=== PATIENT | male | born 1980 | race Caucasian/White ===

== ENCOUNTER 2016-10-10 15:47 | Outpatient (RCR) | payer MEDICAID ==
--- OUTSIDE RECORDS SUMMARY | 2016-09-25 10:45 | XMS REPORT ---
Author GABRIEL Mason [facility] eClinicalWorks Address Unknown Phone Unavailable Care Team Providers Care Central Supply Technician Supervisor Name Role Phone GABRIEL VIVAS CP Unavailable Allergies, Adverse Reactions, Alerts Substance Reaction Event Type Erythrocin Info Not Available Drug Allergy Vioxx Chest pain Drug Allergy Sulfa(sulfonamide Antibiotics) Excessive bleeding Non Drug Allergy Penicillins Info Not Available Non Drug Allergy Problems Problem Type Condition Code Onset Dates Condition Status Problem Bipolar I disorder, most recent episode (or current) mixed, moderate 296.62 Active Problem Major depressive disorder, single episode, severe, without mention of psychotic behavior 296.23 Active Problem Unspecified episodic mood disorder 296.90 Active Problem Depressive disorder, not elsewhere classified 311 Active Assessment Dental examination Z01.20 Active Medications Medication Code System Code Instructions Start Date End Date Status Dosage Christoval [facility] [address]-30 5-325 MG Orally every 6 hrs Jul 20, 2016 Jul 24, 2016 1 tablet as needed Clindamycin HCl [facility] [address]-47 150 MG Orally 3 times a day Jul 20, 2016 Jul 27, 2016 1 capsule Seroquel [facility] [address]-82 not defined Procedures Procedure Coding System Code Date INTRAORL-PERIAPICAL 1 FILM 67462 CPT-4 D0220 Jul 20, 2016 LTD ORAL EVALUATION - PROBLEM FOCUS CPT-4 D0140 Jul 20, 2016 Vital Signs Date/Time: Jul 20, 2016 Blood Pressure Diastolic 82 mmHg Blood Pressure Systolic 129 mmHg Height 72 in Results No Known Results Summary Purpose eClinicalWorks Submission
[~2016-10-10 15:47] MED LIST: ACHD5005 PO; BUSP10TA95 PC; CEPH-507 PO; CEPH500C PO; CETI10CA PO; CYCL10TA9 PO; HYDR-3812 PO; METH4TAB10 PO; OSLT75C PO; PRD20T PO; QUET50TA55 PO; SERT50TA9 PO; TRAM50TA2 PO
== END 2016-10-18 14:47 | disposition home or self-care (01) ==
PROVIDERS: ATTEND Nurse Practitioner Family
DX: M25.511 Pain in right shoulder (principal)

== ENCOUNTER 2018-05-12 20:40 | Emergency (ER) | payer MEDICAID ==
[~2018-05-12] VITALS: Ht 185.4 cm; Wt 79.4 kg
[~2018-05-12 20:40] MED LIST changes: -HYDR-3812 PO
--- OUTSIDE RECORDS SUMMARY | 2018-05-12 20:45 | XMS REPORT ---
Author GABRIEL Mason [facility] eClinicalWorks Address Unknown Phone Unavailable Care Team Providers Care Stunt Person Name Role Phone GABRIEL VIVAS CP Unavailable [...] Instructions Start Date End Date Status Dosage [place] [facility] [address]-77 5-325 MG Orally every 6 hrs Jul 20, 2016 Jul 24, 2016 1 tablet as needed Clindamycin HCl [facility] [address]-26 150 MG Orally 3 times a day Jul 20, 2016 Jul 27, 2016 1 capsule Seroquel [facility] [address]-50 not defined Procedures Procedure Coding System Code Date INTRAORL-PERIAPICAL 1 FILM 54591 CPT-4 D0220 Jul 20, 2016 LTD ORAL EVALUATION - PROBLEM FOCUS CPT-4 D0140 Jul 20, 2016 Vital Signs Date/Time: Jul 20, 2016 Blood Pressure Diastolic 82 mmHg Blood Pressure Systolic 129 mmHg Height 72 in Results No Known Results Summary Purpose eClinicalWorks Submission
--- OUTSIDE RECORDS SUMMARY | 2018-05-12 20:45 | XMS REPORT ---
Author Author TIMO SHANE [facility] Address Unknown Care Team Providers Care Top Lift Scourer Name Role Phone TIMO SHANE Unavailable PROBLEMS Type Condition ICD9-CM Code HTV26-LX Code Onset Dates Condition Status SNOMED Code Problem Major depressive disorder, single episode, severe, without mention of psychotic behavior 296.23 Active 14400688 Problem Bipolar I disorder, most recent episode (or current) mixed, moderate 296.62 Active 971299809 Problem Unspecified episodic mood disorder 296.90 Active 486103631 Problem Depressive disorder, not elsewhere classified 311 Active [id number] ALLERGIES Substance Reaction Event Type Date Status Erythrocin Unknown Drug Allergy Jul, Active Vioxx Chest pain Drug Allergy Jul, Active Penicillins Unknown Non Drug Allergy Jul, Active Sulfa(sulfonamide Antibiotics) Excessive bleeding Non Drug Allergy Jul, Active ENCOUNTERS Encounter Location Date Diagnosis [facility] [id number] [place] [address] [id number] Jul, Dental caries K02.9 [facility] [id number] [place] [address] [id number] Jul, Dental examination Z01.20 [facility] [id number] [place] [address] [id number] Jul, Dental caries K02.9 [facility] [id number] [place] [address] [id number] Jul, Dental examination Z01.20 [facility] [id number] [place] [phone] Jan, [facility] [id number] [place] [address] [phone] Jan, [facility] [id number] [place] [address] [phone] May, [facility] [id number] [address] Apr, [facility] [address] [address] Apr, [facility] [address] [address] Apr, [facility] [address] [address] Mar, [facility] [address] [address] Mar, [facility] [id number] [place] [phone] Mar, [facility] [address] [address] Mar, [facility] [address] [address] February, [facility] [id number] [address] February, IMMUNIZATIONS No Known Immunizations SOCIAL HISTORY Never Assessed REASON FOR VISIT TE PLAN OF CARE Activity Details Follow Up prn Reason:gino and hygiene VITAL SIGNS Height 72 in 2017-08-10 Blood pressure systolic 134 mmHg 2017-08-10 Blood pressure diastolic 90 mmHg 2017-08-10 MEDICATIONS No Known Medications RESULTS No Results PROCEDURES Procedure Date Ordered Result Body Site EXTRAC ERUPTED TOOTH/EXPOSED ROOT Aug 10, 2017 INSTRUCTIONS MEDICATIONS ADMINISTERED No Known Medications
--- OUTSIDE RECORDS SUMMARY | 2018-05-12 20:45 | XMS REPORT ---
Author Author TIMO SHANE eClinicalWorks Address Unknown Phone Unavailable Care Team Providers Care Buck Swamper Name Role Phone TIMO SHANE CP Unavailable Allergies, Adverse Reactions, Alerts Substance Reaction Event Type Erythrocin Info Not Available Drug Allergy Vioxx Chest pain Drug Allergy Penicillins Info Not Available Non Drug Allergy Sulfa(sulfonamide Antibiotics) Excessive bleeding Non Drug Allergy Problems Problem Type Condition Code Onset Dates Condition Status Problem Bipolar I disorder, most recent episode (or current) mixed, moderate 296.62 Active Problem Major depressive disorder, single episode, severe, without mention of psychotic behavior 296.23 Active Problem Unspecified episodic mood disorder 296.90 Active Problem Depressive disorder, not elsewhere classified 311 Active Assessment Dental caries K02.9 Active Medications Medication Code System Code Instructions Start Date End Date Status Dosage [place] [facility] [address]-58 5-325 MG Orally every 6 hrs Aug 01, 2016 1 tablet as needed Seroquel [facility] [address]-53 not defined Procedures Procedure Coding System Code Date SURG REMOVAL ERUPTED TOOTH CPT-4 D7210 Aug 01, 2016 EXTRAC ERUPTED TOOTH/EXPOSED ROOT CPT-4 D7140 Aug 01, 2016 Vital Signs Date/Time: Aug 01, 2016 Blood Pressure Diastolic 72 mmHg Blood Pressure Systolic 113 mmHg Results No Known Results Summary Purpose eClinicalWorks Submission
--- NOTE | 2018-05-12 21:14 | ED Upper Extremity ---
General Chief Complaint: Upper Extremity Stated Complaint: L SHOULDER PAIN Source: patient Exam Limitations: no limitations History of Present Illness Date Seen by Provider: May 12, 2018 Time Seen by Provider: 21:11 Initial Comments to ER with reports of left shoulder pain. This is been ongoing for a few weeks. By year ago he had surgery on the right shoulder for "bone spurs". Dr. Odonnlel did that surgery. He states this pain that he's having in the posterior left shoulder is similar to what he had a year ago. He does not recall any injury. Onset: just prior to arrival Severity: moderate Pain/Injury Location: left shoulder Method of Injury: unknown Modifying Factors: Worse With Movement Allergies and Home Medications Allergies Coded Allergies: Rofecoxib (Unverified Allergy, CHEST PAIN, 12/10/10) Uncoded Allergies: ERYTHROMYCIN (Allergy, Severe, ALSO MAKES HIM "DROP ", 12/10/10) PENICILLIN (Allergy, Severe, "DROP ", 12/10/10) SULFA DRUGS (Allergy, SHAKE AND BLEED PROFUSELY OUT BOTH NOSTRILS, 12/10/10) Home Medications Buspirone HCl 10 Mg Tablet, 1 TAB PC BID, (Reported) Cephalexin 500 Mg Capsule, 500 MG PO TID Prescribed by: ÓSCAR PATEL on 09/20/15128 Cyclobenzaprine HCl 10 Mg Tablet, 10 MG PO Q8H PRN for SPASMS Prescribed by: ÓSCAR PATEL on 10/04/161618 Hydrocodone Bit/Acetaminophen 1 Each Tablet, 1 EACH PO Q4H PRN for PAIN Prescribed by: ÓSCAR PATEL on 10/04/161618 Methylprednisolone 4 Mg Tab.ds.pk, 4 MG PO UD Prescribed by: ÓSCAR PATEL on 10/04/161618 Quetiapine Fumarate 50 Mg Tablet, 1.5 TAB PO DAILY, (Reported) Sertraline HCl 50 Mg Tablet, 1 TAB PO DAILY, (Reported) Tramadol HCl 50 Mg Tablet, 50 MG PO Q4H PRN for PAIN Prescribed by: ÓSCAR PATEL on 09/20/15128 Patient Home Medication List Home Medication List Reviewed: Yes Constitutional: see HPI EENTM: see HPI Respiratory: no symptoms reported Cardiovascular: no symptoms reported Genitourinary: no symptoms reported Musculoskeletal: see HPI, joint pain Skin: no symptoms reported Psychiatric/Neurological: No Symptoms Reported Past Gecjgec-Aefoxi-Zdxnqh Hx Patient Social History Alcohol Use: Denies Use Recreational Drug Use: No Smoking Status: Current Everyday Smoker Type Used: Cigarettes Recent Foreign Travel: No Contact w/Someone Who Travel: No Recent Hopitalizations: No Immunizations Up To Date Tetanus Booster (TDap): Unknown Seasonal Allergies Seasonal Allergies: No Past Medical History Surgeries: Yes (LEFT KNEE, WISDOM TEETH, tendon on r hand) Respiratory: No Cardiac: No Neurological: No Gastrointestinal: No Musculoskeletal: Yes (chronic shoulder pain) Endocrine: No Cancer: No Psychosocial: Yes Anxiety Integumentary: No Blood Disorders: No Adverse Reaction/Blood Tranf: No Family Medical History No Pertinent Family Hx Physical Exam Vital Signs Vital Signs - First Documented 05/12/18 20:58 Temp 98.0 Pulse 66 Resp 20 B/P (MAP) 132/76 (94) Pulse Ox 98 O2 Delivery Room Air Capillary Refill : Height, Weight, BMI Height: 6'0" Weight: 200lbs. oz. 90.727946ts; BMI Method:Stated General Appearance: WD/WN, no apparent distress HEENT: PERRL/EOMI, normal ENT inspection Neck: non-tender, full range of motion Respiratory: no respiratory distress, no accessory muscle use Shoulder: normal inspection, non-tender; No ecchymosis; limited ROM, pain; No soft tissue tenderness, No swelling Elbow/Forearm: normal inspection, non-tender Wrist: Yes normal inspection, Yes non-tender Hand: normal inspection, non-tender, Left Neurologic/Psychiatric: alert, normal mood/affect, oriented x 3 Progress/Results/Core Measures Results/Orders My Orders Orders - OLGA RATLIFF APRN Shoulder, Left, 3 Views (05/12/18 21:05) Ketorolac Injection (Toradol Injection) (05/12/18 21:15) Medications Given in ED Current Medications Medications Dose Ordered Sig/Tabitha Route Start Time Stop Time Status Last Admin Dose Admin Ketorolac Tromethamine 60 mg ONCE ONCE IM 05/12/18 21:15 05/12/18 21:16 DC 05/12/18 21:23 60 MG Vital Signs/I&O 05/12/18 20:58 Temp 98.0 Pulse 66 Resp 20 B/P (MAP) 132/76 (94) Pulse Ox 98 O2 Delivery Room Air Departure Impression Primary Impression: Left shoulder pain Disposition: 01 HOME, SELF-CARE Condition: Stable Departure-Patient Inst. Decision time for Depature: 21:13 Referrals: ANNEL ODONNELL MD, LISA A MD (PCP/Family) Primary Care Physician Patient Instructions: Shoulder Pain (DC) Add. Discharge Instructions: 1. Give Dr. Odonnell a call tomorrow to make an appointment to be seen whenever he can see you for further evaluation of this pain.All discharge instructions reviewed with patient and/or family. Voiced understanding. Copy Copies To 1: ANNEL ODONNELL MD, PETER J APRN May 12, 2018 21:14
[2018-05-12] MEDS ORDERED: KETOROLAC 60 MG/2 ML VIAL IM ONE (21:15)
--- NOTE | 2018-05-12 21:20 | Diagnostic Imaging Report ---
INDICATION: Left shoulder pain COMPARISON: None FINDINGS: 3 views of the left shoulder demonstrate no fracture or dislocation. Articular surfaces are normal. There are no osseous lesions. IMPRESSION: Negative left shoulder Dictated by: Dictated on workstation # [id number]
[2018-05-12 21:32] VITALS: BP 132/76
== END 2018-05-12 21:31 | disposition home or self-care (01) ==
LOC: EDUNIT# 20:40 → ER 20:41
DX: M25.512 Pain in left shoulder (principal); F41.9 Anxiety disorder, unspecified; F17.210 Nicotine dependence, cigarettes, uncomplicated; Z88.0 Allergy status to penicillin; Z88.2 Allergy status to sulfonamides; Z88.8 Allergy status to other drugs, medicaments and biological substances; Z98.890 Other specified postprocedural states; Z79.52 Long term (current) use of systemic steroids
CPT/HCPCS: 73030; 96372

== ENCOUNTER 2018-07-15 18:38 | Emergency (ER) | payer MEDICAID ==
[~2018-07-15] VITALS: Ht 185.4 cm; Wt 81.6 kg
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
[2018-07-15] MEDS ORDERED: KETOROLAC 60 MG/2 ML VIAL IM ONE (20:00)
[2018-07-15] MEDS ORDERED: PROCHLORPERAZINE 10 MG/2ML INJ (COMPAZINE) IM ONE (20:00)
[2018-07-15] MEDS ORDERED: diphenhydrAMINE 50 MG/ML INJ (BENADRYL) IM ONE (20:00)
--- NOTE | 2018-07-15 20:01 | ED Headache ---
General Stated Complaint: MIGRAINE Source: patient, family Exam Limitations: no limitations History of Present Illness Date Seen by Provider: Jul 15, 2018 Time Seen by Provider: 20:00 Initial Comments To ER with reports of right-sided headache. He had this yesterday but seemed to improve and then recur this afternoon about 2 PM. He took 3 ibuprofen and 2 Tylenol without relief. He's had nausea as well. No fevers or chills. He hasn't had a migraine for very long time but he does have a history. Timing/Duration: waxing and waning Severity/Quality: moderate Location: parietal Prior Headaches/Recent Trauma: occasional headaches Modifying Factors: worse with exposure to light Associated Symptoms: nausea/vomiting; No stiff neck Allergies and Home Medications Allergies Coded Allergies: Rofecoxib (Unverified Allergy, CHEST PAIN, 12/10/10) Uncoded Allergies: ERYTHROMYCIN (Allergy, Severe, ALSO MAKES HIM "DROP ", 12/10/10) PENICILLIN (Allergy, Severe, "DROP ", 12/10/10) SULFA DRUGS (Allergy, SHAKE AND BLEED PROFUSELY OUT BOTH NOSTRILS, 12/10/10) Home Medications Buspirone HCl 10 Mg Tablet, 1 TAB PC BID, (Reported) Cephalexin 500 Mg Capsule, 500 MG PO TID Prescribed by: ÓSCAR PATEL on 09/20/15128 Cyclobenzaprine HCl 10 Mg Tablet, 10 MG PO Q8H PRN for SPASMS Prescribed by: ÓSCAR PATEL on 10/04/161618 Hydrocodone Bit/Acetaminophen 1 Each Tablet, 1 EACH PO Q4H PRN for PAIN Prescribed by: ÓSCAR PATEL on 10/04/161618 Methylprednisolone 4 Mg Tab.ds.pk, 4 MG PO UD Prescribed by: ÓSCAR PATEL on 10/04/161618 Quetiapine Fumarate 50 Mg Tablet, 1.5 TAB PO DAILY, (Reported) Sertraline HCl 50 Mg Tablet, 1 TAB PO DAILY, (Reported) Tramadol HCl 50 Mg Tablet, 50 MG PO Q4H PRN for PAIN Prescribed by: ÓSCAR PATEL on 09/20/15128 Patient Home Medication List Home Medication List Reviewed: Yes Review of Systems Review of Systems Constitutional: see HPI; No chills, No fever Eyes: See HPI, Photophobia Ears, Nose, Mouth, Throat: no symptoms reported Respiratory: no symptoms reported Cardiovascular: no symptoms reported Genitourinary: no symptoms reported Musculoskeletal: no symptoms reported Skin: no symptoms reported Psychiatric/Neurological: No Symptoms Reported Past Yevsqqe-Uercjv-Yodigu Hx Patient Social History Type Used: Cigarettes Recent Foreign Travel: No Contact w/Someone Who Travel: No Recent Hopitalizations: No Immunizations Up To Date Tetanus Booster (TDap): Unknown Seasonal Allergies Seasonal Allergies: No Past Medical History Surgeries: Yes (LEFT KNEE, WISDOM TEETH, tendon on r hand) Respiratory: No Cardiac: No Neurological: No Gastrointestinal: No Musculoskeletal: Yes (chronic shoulder pain) Endocrine: No Cancer: No Psychosocial: Yes Anxiety Integumentary: No Blood Disorders: No Adverse Reaction/Blood Tranf: No Family Medical History No Pertinent Family Hx Physical Exam Vital Signs Capillary Refill : Height, Weight, BMI Height: 6'1.00" Weight: 175lbs. oz. 79.571226ap; BMI Method:Stated General Appearance: WD/WN, no apparent distress HEENT: PERRL/EOMI, normal ENT inspection, TMs normal Neck: non-tender, full range of motion Respiratory: no respiratory distress, no accessory muscle use Extremities: normal range of motion, non-tender Psychiatric: alert, oriented x 3 Crainal Nerves: normal hearing, normal speech, PERRL Skin: normal color, warm/dry Progress/Results/Core Measures Results/Orders My Orders Orders - OLGA RATLIFF APRN Ketorolac Injection (Toradol Injection) (07/15/18 20:00) Prochlorperazine Injection (Compazine In (07/15/18 20:00) Diphenhydramine Injection (Benadryl Inje (07/15/18 20:00) Departure Impression Primary Impression: Headache Disposition: 01 HOME, SELF-CARE Condition: Stable Departure-Patient Inst. Decision time for Depature: 20:04 Referrals: CHRISTOPHER HERRING MD (PCP/Family) Primary Care Physician Patient Instructions: Headache, Adult (DC) Add. Discharge Instructions: 1. Return to ER for any concerns 2. Follow-up with doctor next week OLGA RATLIFF APRN Jul 15, 2018 20:01
[2018-07-15 20:28] VITALS: BP 116/70
== END 2018-07-15 20:31 | disposition home or self-care (01) ==
LOC: EDUNIT# 18:38 → ER 18:39
DX: R51 Headache (principal); F41.9 Anxiety disorder, unspecified; Z88.8 Allergy status to other drugs, medicaments and biological substances; Z88.0 Allergy status to penicillin; Z88.2 Allergy status to sulfonamides; Z88.1 Allergy status to other antibiotic agents; Z79.52 Long term (current) use of systemic steroids
CPT/HCPCS: 99284

== ENCOUNTER 2018-08-13 18:25 | Emergency (ER) | payer MEDICAID ==
[~2018-08-13] VITALS: Ht 185.4 cm; Wt 81.6 kg
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
[2018-08-13] MEDS ORDERED: PROMETHAZINE INJ 25 MG/ML (PHENERGAN) AMP IVP STA (18:50)
[2018-08-13] MEDS ORDERED: NS IV 1000 ML 1,000 ML IV SCH (18:50)
[2018-08-13] MEDS ORDERED: KETOROLAC 30 MG/ML VIAL IVP STA (18:50)
--- NOTE | 2018-08-13 20:39 | ED Headache ---
General Chief Complaint: Head/Cervical Problems Stated Complaint: MIGRANE,NASUEA Nursing Triage Note: PT ARRIVES TO ED ROOM #5 WITH C/O HEADACHE. PT STATES THAT HIS HEAD STARTED HURTING AT 1730, 10/10, SHARP, PINPOINT PAIN BEHIND EYES. PT STATES THAT HE BECAME NAUSEATED AND VOMITTED X2. PT STATES THAT THE LIGHT IS HURTING HIS HEAD. PT STATES HIS ARMS AND LEGS NUMB AND TINGLING. UPON ENTERING THE ROOM VIA W/C THE PT HAD DIFFICULTY STANDING AND TRANSFERRING TO THE BED DUE TO INCREASED PAIN WHEN STANDING. Nursing Sepsis Screen: No Definite Risk History of Present Illness Date Seen by Provider: Aug 13, 2018 Time Seen by Provider: 19:30 Initial Comments 37-year-old male presents for headache Timing/Duration: 4-6 hours Severity/Quality: severe Location: frontal Prior Headaches/Recent Trauma: occasional headaches Associated Symptoms: No confusion, No fatigue; facial pain; No fever/chills, No flushing, No loss of consciousness; nausea/vomiting (nausea for several hours , one episode of vomiting.); No nasal congestion, No nasal drainage, No numbness in legs/feet, No rash, No seizures, No sinus infection, No stiff neck, No vision changes (photophobia), No weakness Allergies and Home Medications Allergies Coded Allergies: Rofecoxib (Unverified Allergy, CHEST PAIN, 12/10/10) Uncoded Allergies: ERYTHROMYCIN (Allergy, Severe, ALSO MAKES HIM "DROP ", 12/10/10) PENICILLIN (Allergy, Severe, "DROP ", 12/10/10) SULFA DRUGS (Allergy, SHAKE AND BLEED PROFUSELY OUT BOTH NOSTRILS, 12/10/10) Home Medications Buspirone HCl 10 Mg Tablet, 1 TAB PC BID, (Reported) Cephalexin 500 Mg Capsule, 500 MG PO TID Prescribed by: ÓSCAR PATEL on 09/20/15 0129 Cyclobenzaprine HCl 10 Mg Tablet, 10 MG PO Q8H PRN for SPASMS Prescribed by: ÓSCAR PATEL on 10/04/16 161 Hydrocodone Bit/Acetaminophen 1 Each Tablet, 1 EACH PO Q4H PRN for PAIN Prescribed by: ÓSCAR PATEL on 10/04/16 161 Methylprednisolone 4 Mg Tab.ds.pk, 4 MG PO UD Prescribed by: ÓSCAR PATEL on 10/04/16 1619 Quetiapine Fumarate 50 Mg Tablet, 1.5 TAB PO DAILY, (Reported) Sertraline HCl 50 Mg Tablet, 1 TAB PO DAILY, (Reported) Tramadol HCl 50 Mg Tablet, 50 MG PO Q4H PRN for PAIN Prescribed by: ÓSCAR PATEL on 09/20/15 0129 Patient Home Medication List Home Medication List Reviewed: Yes Review of Systems Review of Systems Constitutional: no symptoms reported, see HPI Eyes: See HPI, Photophobia Gastrointestinal: see HPI, loss of appetite, nausea, vomiting Psychiatric/Neurological: See HPI, Headache All Other Systems Reviewed Negative Unless Noted: Yes Past Awcbeps-Tyltsg-Pzkaff Hx Past Med/Social Hx: Reviewed Nursing Past Med/Soc Hx Patient Social History Alcohol Use: Denies Use Recreational Drug Use: No Smoking Status: Current Everyday Smoker Type Used: Cigarettes 2nd Hand Smoke Exposure: Yes Recent Foreign Travel: No Contact w/Someone Who Travel: No Recent Infectious Disease Expo: No Recent Hopitalizations: No Physical Abuse: No Sexual Abuse: No Mistreated: No Fear: No Immunizations Up To Date Tetanus Booster (TDap): Unknown Seasonal Allergies Seasonal Allergies: No Past Medical History Surgeries: Yes (LEFT KNEE, WISDOM TEETH, tendon on r hand) Respiratory: No Cardiac: No Neurological: Yes Headaches /Migraines Gastrointestinal: No Musculoskeletal: Yes (chronic shoulder pain) Endocrine: No Cancer: No Psychosocial: Yes Anxiety Integumentary: No Blood Disorders: No Adverse Reaction/Blood Tranf: No Family Medical History No Pertinent Family Hx Physical Exam Vital Signs Vital Signs - First Documented 08/13/18 19:27 Temp 96.6 Pulse 59 Resp 20 B/P (MAP) 135/94 (108) Pulse Ox 98 O2 Delivery Room Air Capillary Refill : Less Than 3 Seconds Height, Weight, BMI Height: 6'1.00" Weight: 180lbs. oz. 81.691369vw; 24.41 BMI Method:Stated General Appearance: WD/WN, mild distress (anxiety and pain related to headache , states "unable to stand" to transfer from to bed. Required minimal assistance from nursing staff. ) HEENT: PERRL/EOMI, normal ENT inspection, TMs normal, pharynx normal Neck: non-tender, full range of motion, supple, normal inspection Cardiovascular: normal peripheral pulses, regular rate, rhythm Respiratory: chest non-tender, lungs clear Gastrointestinal: normal bowel sounds, non tender, soft Psychiatric: alert, oriented x 3 Crainal Nerves: normal hearing, normal speech, PERRL Coordination/Gait: normal finger to nose Motor/Sensory: no motor deficit, no sensory deficit Skin: normal color, cool Progress/Results/Core Measures Results/Orders Lab Results Laboratory Tests Test 08/13/18 19:35 Range/Units White Blood Count 9.5 4.3-11.0 10^3/uL Red Blood Count 5.20 4.35-5.85 10^6/uL Hemoglobin 15.5 13.3-17.7 G/DL Hematocrit 44 40-54 % Mean Corpuscular Volume 84 80-99 FL Mean Corpuscular Hemoglobin 30 25-34 PG Mean Corpuscular Hemoglobin Concent 35 32-36 G/DL Red Cell Distribution Width 13.1 10.0-14.5 % Platelet Count 258 130-400 10^3/uL Mean Platelet Volume 10.9 H 7.4-10.4 FL Neutrophils (%) (Auto) 50 42-75 % Lymphocytes (%) (Auto) 41 12-44 % Monocytes (%) (Auto) 7 0-12 % Eosinophils (%) (Auto) 2 0-10 % Basophils (%) (Auto) 0 0-10 % Neutrophils # (Auto) 4.8 1.8-7.8 X 10^3 Lymphocytes # (Auto) 3.9 1.0-4.0 X 10^3 Monocytes # (Auto) 0.7 0.0-1.0 X 10^3 Eosinophils # (Auto) 0.2 0.0-0.3 10^3/uL Basophils # (Auto) 0.0 0.0-0.1 10^3/uL Sodium Level 138 135-145 MMOL/L Potassium Level 4.0 3.6-5.0 MMOL/L Chloride Level 104 98-107 MMOL/L Carbon Dioxide Level 26 21-32 MMOL/L Anion Gap 8 5-14 MMOL/L Blood Urea Nitrogen 10 7-18 MG/DL Creatinine 1.13 0.60-1.30 MG/DL Estimat Glomerular Filtration Rate > 60 BUN/Creatinine Ratio 9 Glucose Level 98 70-105 MG/DL Calcium Level 9.8 8.5-10.1 MG/DL Corrected Calcium 9.4 8.5-10.1 MG/DL Total Bilirubin 0.4 0.1-1.0 MG/DL Aspartate Amino Transf (AST/SGOT) 18 5-34 U/L Alanine Aminotransferase (ALT/SGPT) 28 0-55 U/L Alkaline Phosphatase 67 40-136 U/L Total Protein 7.2 6.4-8.2 GM/DL Albumin 4.5 3.2-4.5 GM/DL Thyroid Stimulating Hormone (TSH) 2.40 0.35-4.94 UIU/ML My Orders Orders - LYNDSAYERNESTO Saline Lock/Iv-Start (08/13/18 18:50) Ns Iv 1000 Ml (Sodium Chloride 0.9%) (08/13/18 18:50) Ketorolac Injection (Toradol Injection) (08/13/18 18:50) Promethazine Injection (Phenergan Injec (08/13/18 18:50) Cbc With Automated Diff (08/13/18 20:41) Comprehensive Metabolic Panel (08/13/18 20:41) Thyroid Stimulating Hormone (08/13/18 20:41) Vital Signs/I&O 08/13/18 19:27 Temp 96.6 Pulse 59 Resp 20 B/P (MAP) 135/94 (108) Pulse Ox 98 O2 Delivery Room Air Blood Pressure Mean: 108 Progress Progress Note : Time: 19:30 Progress Note Patient seen and evaluated. IV access obtained, normal saline 1 L IV. Phenergan 25 mg I V, Toradol 30 mg IV, and labs. Will continue to monitor. VS stable. Room darkened and call light in reach. 2029 pt rested with eyes closed, reports nausea to be improved. IV fluid was clamped off, so infusion just started. 2114 pt rested with eyes closed, neuro exam WNL. Reports headache improved. Up to bathroom with no assistance. Labs WNL. 2200 IV fluids infused. Discharge instructions and return precautions reviewed with the patient. Departure Impression Primary Impression: Headache Qualified Codes: G44.201 - Tension-type headache, unspecified, intractable Disposition: HOME, SELF-CARE Condition: Improved Departure-Patient Inst. Decision time for Depature: 21:00 Referrals: CHRISTOPHER HERRING MD (PCP/Family) Primary Care Physician Patient Instructions: Headache, Adult (DC) Add. Discharge Instructions: Clear liquid diet for 2-4 hours, then progress diet as tolerated. Use Excedrin migraine at first onset of headache. Follow-up with your primary care provider in one week, sooner if symptoms do not improve or headache returns. Return to emergency department for acute, urgent health care needs. All discharge instructions reviewed with patient and/or family. Voiced understanding. Copy Copies To 1: CHRISTOPHER HERRING MD, AMY ARNP Aug 13, 2018 20:39
[2018-08-13 20:46] LABS: BASOPHILS % (AUTO) 0 % (0-10); EOSINOPHILS # (AUTO) 0.2 10^3/uL (0.0-0.3); EOSINOPHILS % (AUTO) 2 % (0-10); HEMATOCRIT 44 % (40-54); HEMOGLOBIN 15.5 G/DL (13.3-17.7); LYMPHOCYTES # (AUTO) 3.9 X 10^3 (1.0-4.0); LYMPHOCYTES % (AUTO) 41 % (12-44); MEAN CORPUSCULAR HEMOGLOBIN 30 PG (25-34); MEAN CORPUSCULAR HGB CONC 35 G/DL (32-36); MEAN CORPUSCULAR VOLUME 84 FL (80-99); MEAN PLATELET VOLUME 10.9 FL (7.4-10.4); MONOCYTES # (AUTO) 0.7 X 10^3 (0.0-1.0); MONOCYTES % (AUTO) 7 % (0-12); NEUTROPHILS # (AUTO) 4.8 X 10^3 (1.8-7.8); NEUTROPHILS % (AUTO) 50 % (42-75); PLATELET COUNT 258 10^3/uL (130-400); RED CELL DISTRIBUTION WIDTH 13.1 % (10.0-14.5); WHITE BLOOD COUNT 9.5 10^3/uL (4.3-11.0)
[2018-08-13 20:58] LABS: ALANINE AMINOTRANSFERASE 28 U/L (0-55); ALBUMIN 4.5 GM/DL (3.2-4.5); ALKALINE PHOSPHATASE 67 U/L (40-136); BILIRUBIN,TOTAL 0.4 MG/DL (0.1-1.0); BUN/CREATININE RATIO 9; CALCIUM 9.8 MG/DL (8.5-10.1); CARBON DIOXIDE 26 MMOL/L (21-32); CHLORIDE 104 MMOL/L (98-107); CREATININE SERUM 1.13 MG/DL (0.60-1.30); GFR ESTIMATED > 60; GLUCOSE 98 MG/DL (70-105); SODIUM 138 MMOL/L (135-145); TOTAL PROTEIN 7.2 GM/DL (6.4-8.2)
[2018-08-13 22:11] VITALS: BP 114/65
== END 2018-08-13 22:13 | disposition home or self-care (01) ==
LOC: EDUNIT# 18:25 → ER 18:26
DX: R51 Headache (principal); F41.9 Anxiety disorder, unspecified; F17.210 Nicotine dependence, cigarettes, uncomplicated; Z88.0 Allergy status to penicillin; Z88.2 Allergy status to sulfonamides; Z88.8 Allergy status to other drugs, medicaments and biological substances; Z79.52 Long term (current) use of systemic steroids
CPT/HCPCS: 36415; 80053; 84443; 85025; 96374; 96375

== ENCOUNTER 2018-10-29 11:16 | Emergency (ER) | payer MEDICAID ==
--- NOTE | 2018-10-29 11:46 | NUR ---
ATTEMPT TO CALL PT BACK ET PT NOT IN WAITING ROOM.
--- NOTE | 2018-10-29 12:12 | NUR ---
ATTEMPT TO CALL PT BACK ET PT NOT IN WAITING ROOM.
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
== END 2018-10-29 11:46 | disposition left against medical advice (07) ==
LOC: EDUNIT# 11:16 → ER 11:17
DX: S69.92XA Unspecified injury of left wrist, hand and finger(s), initial encounter (principal); X58.XXXA Exposure to other specified factors, initial encounter

== ENCOUNTER 2018-11-07 10:28 | Emergency (ER) | payer MEDICAID | END 2018-11-07 11:40 | disposition home or self-care (01) | LOC: ER 10:28 ==

== ENCOUNTER 2018-12-20 04:31 | Emergency (ER) | payer MEDICAID ==
[~2018-12-20] VITALS: Ht 185.4 cm; Wt 90.7 kg
[~2018-12-20 04:31] MED LIST changes: +HYDR-4226 PO; +METH-313 PO
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
[2018-12-20] MEDS ORDERED: LACTATED RINGERS 1,000 ML IV ONE ×2 (05:04→06:09)
[2018-12-20 05:12] LABS: BASOPHILS % (AUTO) 0 % (0-10); EOSINOPHILS # (AUTO) 0.1 10^3/uL (0.0-0.3); EOSINOPHILS % (AUTO) 1 % (0-10); HEMATOCRIT 47 % (40-54); HEMOGLOBIN 16.2 G/DL (13.3-17.7); LYMPHOCYTES # (AUTO) 1.2 X 10^3 (1.0-4.0); LYMPHOCYTES % (AUTO) 7 % (12-44); MEAN CORPUSCULAR HEMOGLOBIN 29 PG (25-34); MEAN CORPUSCULAR HGB CONC 34 G/DL (32-36); MEAN CORPUSCULAR VOLUME 84 FL (80-99); MEAN PLATELET VOLUME 10.6 FL (7.4-10.4); MONOCYTES % (AUTO) 13 % (0-12); NEUTROPHILS # (AUTO) 12.9 X 10^3 (1.8-7.8); NEUTROPHILS % (AUTO) 80 % (42-75); PLATELET COUNT 309 10^3/uL (130-400); RED CELL DISTRIBUTION WIDTH 13.1 % (10.0-14.5); WHITE BLOOD COUNT 16.2 10^3/uL (4.3-11.0)
[2018-12-20] MEDS ORDERED: ONDANSETRON 4 MG/2 ML (SDV) Z0FRAN IVP ONE (05:15)
[2018-12-20 05:31] LABS: ALANINE AMINOTRANSFERASE 40 U/L (0-55); ALBUMIN 4.6 GM/DL (3.2-4.5); ALKALINE PHOSPHATASE 66 U/L (40-136); AMYLASE 58 U/L (25-125); BILIRUBIN,TOTAL 0.6 MG/DL (0.1-1.0); BUN/CREATININE RATIO 13; CALCIUM 10.1 MG/DL (8.5-10.1); CARBON DIOXIDE 25 MMOL/L (21-32); CHLORIDE 104 MMOL/L (98-107); CREATININE SERUM 1.36 MG/DL (0.60-1.30); GFR ESTIMATED 58; GLUCOSE 134 MG/DL (70-105); LIPASE 24 U/L (8-78); POTASSIUM 4.6 MMOL/L (3.6-5.0); SODIUM 141 MMOL/L (135-145); TOTAL PROTEIN 7.7 GM/DL (6.4-8.2)
[2018-12-20 05:41] LABS: BAND NEUTROPHILS 13 %; LYMPHOCYTES % (MANUAL) 4 %; MONOCYTES % (MANUAL) 8 %; NEUTROPHILS % (MANUAL) 75 %; RBC MORPH NORMAL
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
[2018-12-20 06:54] LABS: BILIRUBIN,URINE NEGATIVE (NEGATIVE); CLARITY,URINE CLEAR; COLOR,URINE YELLOW; GLUCOSE, URINE (UA) NEGATIVE (NEGATIVE); KETONES,URINE NEGATIVE (NEGATIVE); LEUKOCYTE ESTERASE ,URINE 1+ (NEGATIVE); NITRITE,URINE NEGATIVE (NEGATIVE); PH,URINE 8 (5-9); PROTEIN,URINE 1+ (NEGATIVE); UROBILINOGEN,URINE NORMAL (NORMAL)
[2018-12-20] MEDS ORDERED: HYOS0.1283 SL (07:00)
[2018-12-20] MEDS ORDERED: ONDA4TAB11 PO (07:00)
[2018-12-20 07:07] LABS: AMPHETAMINE SCREEN, URINE NEGATIVE (NEGATIVE); BARBITURATE SCREEN URINE NEGATIVE (NEGATIVE); BENZODIAZEPINES SCREEN URINE NEGATIVE (NEGATIVE); CANNABINOID SCREEN, URINE NEGATIVE (NEGATIVE); COCAINE SCREEN URINE NEGATIVE (NEGATIVE); METHADONE STAT NEGATIVE (NEGATIVE); METHAMPHETAMINE SCREEN URINE S NEGATIVE (NEGATIVE); OPIATE SCREEN URINE NEGATIVE (NEGATIVE); OXYCODONE STAT NEGATIVE (NEGATIVE); PROPOXYPHENE STAT NEGATIVE (NEGATIVE); TRICYCLIC ANTIDEPRESSANTS SCRE NEGATIVE (NEGATIVE)
[2018-12-20 07:09] LABS: BACTERIA,URINE NEGATIVE /HPF; SQUAMOUS EPITHELIAL CELL,UR RARE /HPF
[2018-12-20 07:15] VITALS: BP 113/66
== END 2018-12-20 07:15 | disposition home or self-care (01) ==
LOC: EDUNIT# 04:31 → ER 04:32
DX: K52.9 Noninfective gastroenteritis and colitis, unspecified (principal); F41.9 Anxiety disorder, unspecified; G43.909 Migraine, unspecified, not intractable, without status migrainosus; F17.290 Nicotine dependence, other tobacco product, uncomplicated; Z88.1 Allergy status to other antibiotic agents; Z88.2 Allergy status to sulfonamides; Z88.0 Allergy status to penicillin; Z98.890 Other specified postprocedural states; Z79.52 Long term (current) use of systemic steroids
CPT/HCPCS: 36415; 80053; 80306; 80320; 81000; 82150; 83690; 83735; 85007; 85027; 93041

== ENCOUNTER 2019-01-31 14:08 | Emergency (ER) | payer MEDICAID ==
[~2019-01-31] VITALS: Ht 182.9 cm; Wt 87.7 kg
[~2019-01-31 14:08] MED LIST changes: +HYOS0.1283 SL; +ONDA4TAB11 PO
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
--- NOTE | 2019-01-31 14:27 | NUR ---
PATIENT STATES HE FINISHED CLINDAMYCIN APPROXIMATELY 2 DAYS AGO.
[2019-01-31] MEDS ORDERED: LIDOCAINE 2% VISCOUS 15 ML UDC PO ONE (15:00)
[2019-01-31] MEDS ORDERED: TRAM50TA2 PO (15:12)
--- NOTE | 2019-01-31 15:13 | ED EENT ---
History of Present Illness General Chief Complaint: Dental Problems/Pain Stated Complaint: TOOTH PAIN Nursing Triage Note: PATIENT AMBULATORY TO ER WITH COMPLAINT OF RIGHT UPPER DENTAL PAIN. PATIENT STATES HE HAD 3 TEETH PULLED ON SUNDAY AT [facility] AND HE NOW HAS DRY SOCKETS. HE WENT BACK TO [facility] TODAY AND STATES THEY WASHED THE DRY SOCKETS OUT AND TOLD HIM TO TAKE TYLENOL AND IBUPROFEN FOR PAIN. HE STATES HE TOOK 2 TYLENOL AND 3 IBUPROFEN EARLIER WITH NO RELIEF. HE HAS BEEN APPLYING AN ICE PACK. History of Present Illness Date Seen by Provider: Jan 31, 2019 Time Seen by Provider: 14:30 Initial Comments 38-year-old male presents for right upper dental pain. Patient was seen earlier today at [facility], he has been using topical analgesics and taking Tylenol, ibuprofen, and naproxen. He is continuing to have pain. Timing/Duration: yesterday Severity: moderate (patient rates pain 04/23) Prearrival Treatment: over the counter meds Associated Symptoms: denies symptoms Allergies and Home Medications Allergies Coded Allergies: Rofecoxib (Unverified Allergy, CHEST PAIN, 12/10/10) Uncoded Allergies: ERYTHROMYCIN (Allergy, Severe, ALSO MAKES HIM "DROP ", 12/10/10) PENICILLIN (Allergy, Severe, "DROP ", 12/10/10) SULFA DRUGS (Allergy, SHAKE AND BLEED PROFUSELY OUT BOTH NOSTRILS, 12/10/10) Home Medications Buspirone HCl 10 Mg Tablet, 1 TAB PC BID, (Reported) Cephalexin 500 Mg Capsule, 500 MG PO TID Prescribed by: ÓSCAR PATEL on 09/20/15 0129 Cyclobenzaprine HCl 10 Mg Tablet, 10 MG PO Q8H PRN for SPASMS Prescribed by: ÓSCAR PATEL on 10/04/16 1619 Hydrocodone Bit/Acetaminophen 1 Each Tablet, 1 EACH PO Q4H PRN for PAIN Prescribed by: ÓSCAR PATEL on 10/04/16 1619 Hydrocodone/Acetaminophen 1 Each Tablet, 1 EACH PO Q6H PRN for PAIN-MODERATE Prescribed by: OLGA RATLIFF on 11/07/18 1122 Hyoscyamine Sulfate 0.125 Mg Tab.subl, 1-2 TAB SL Q4H Prescribed by: CHRISTOPHER GONZALEZ on 12/20/18 0700 Methocarbamol 750 Mg Tablet, 750 MG PO Q4H PRN for PAIN-MODERATE TO SEVERE Prescribed by: OLGA RATLIFF on 11/07/18 1335 Methylprednisolone 4 Mg Tab.ds.pk, 4 MG PO UD Prescribed by: ÓSCAR PATEL on 10/04/16 1619 Ondansetron 4 Mg Tab.rapdis, 4 MG PO Q4H Prescribed by: CHIRSTOPHER GONZALEZ on 12/20/18 0700 Quetiapine Fumarate 50 Mg Tablet, 1.5 TAB PO DAILY, (Reported) Sertraline HCl 50 Mg Tablet, 1 TAB PO DAILY, (Reported) Tramadol HCl 50 Mg Tablet, 50 MG PO Q4H PRN for PAIN Prescribed by: ÓSCAR PATEL on 09/20/15 0129 Tramadol HCl 50 Mg Tablet, 50 MG PO Q8H Prescribed by: ERNESTO UMANA on 01/31/19 1512 Patient Home Medication List Home Medication List Reviewed: Yes Review of Systems Review of Systems Constitutional: no symptoms reported, see HPI Mouth: pain All Other Systems Reviewed Negative Unless Noted: Yes Past Wpqyqdt-Ncenud-Fzpkwd Hx Past Med/Social Hx: Reviewed Nursing Past Med/Soc Hx Patient Social History Alcohol Use: Denies Use Recreational Drug Use: No Smoking Status: Current Everyday Smoker Type Used: Electronic/Vapor 2nd Hand Smoke Exposure: Yes Recent Foreign Travel: No Contact w/Someone Who Travel: No Recent Infectious Disease Expo: No Recent Hopitalizations: No Immunizations Up To Date Tetanus Booster (TDap): Unknown PED Vaccines UTD: Yes Seasonal Allergies Seasonal Allergies: No Past Medical History Surgeries: Yes (LEFT KNEE SURGERY X 2, RIGHT SHOULDER) Orthopedic Respiratory: No Cardiac: No Neurological: No Headaches /Migraines Genitourinary: No Gastrointestinal: No Musculoskeletal: No Endocrine: No HEENT: No Cancer: No Psychosocial: No Anxiety Integumentary: No Blood Disorders: No Adverse Reaction/Blood Tranf: No Family Medical History No Pertinent Family Hx Physical Exam Vital Signs Vital Signs - First Documented 01/31/19 14:11 Temp 98.8 Pulse 69 Resp 16 B/P (MAP) 152/98 (116) Pulse Ox 97 O2 Delivery Room Air Height, Weight, BMI Height: 6'0" Weight: 193lbs. 5.0oz. [id number]; 24.41 BMI Method:Actual General Appearance: WD/WN, no apparent distress Ears: bilateral ear auricle normal, bilateral ear canal normal, bilateral ear TM normal Nose: normal inspection; No active bleeding, No discharge Mouth/Throat: pharynx normal; No mandibular swelling, No maxillary swelling, No pharynx swelling; other (right upper dental pain, no dental abscess noted, changes compatible with tooth extraction) Cardiovascular: normal peripheral pulses, regular rate, rhythm Respiratory: chest non-tender, lungs clear Neurologic/Psychiatric: no motor/sensory deficits, alert, normal mood/affect, oriented x 3 Progress/Results/Core Measures Results/Orders My Orders Orders - ERNESTO UMANA Tramadol Tablet (Ultram Tablet) (01/31/19 15:00) Lidocaine 2% Viscous 15 Ml (Xylocaine Vi (01/31/19 15:00) Medications Given in ED Current Medications Medications Dose Ordered Sig/Tabitha Route Start Time Stop Time Status Last Admin Dose Admin Lidocaine HCl 15 ml ONCE ONCE PO 01/31/19 15:00 01/31/19 15:02 DC 01/31/19 15:10 15 ML Tramadol HCl 50 mg ONCE ONCE PO 01/31/19 15:00 01/31/19 15:02 DC 01/31/19 15:10 50 MG Vital Signs/I&O 01/31/19 01/31/19 14:11 15:39 Temp 98.8 98.8 Pulse 69 69 Resp 16 16 B/P (MAP) 152/98 (116) 152/98 (116) Pulse Ox 97 97 O2 Delivery Room Air Blood Pressure Mean: 116 Progress Progress Note : Time: 14:30 Progress Note Patient seen and evaluated, tramadol 50 mg orally for pain, will make 2 x 2 gauze pads with viscous lidocaine for patient to apply to areas of tenderness. Agent instructed to remove prior to sleeping and eating or drinking. 1500 discharge instructions and return precautions reviewed with the patient. Departure Impression Primary Impression: Pain, dental Disposition: 01 HOME, SELF-CARE Condition: Improved Departure-Patient Inst. Decision time for Depature: 15:15 Referrals: CHRISTOPHER HERRING MD (PCP/Family) Primary Care Physician Patient Instructions: Dental Pain (DC) Add. Discharge Instructions: Alternate between ibuprofen 800 mg and acetaminophen 650 mg every 4 hours. Do not take additional NSAIDs while taking ibuprofen. Place the lidocaine patches in the area of tenderness, remove after one hour. Remove before eating or sleeping. Follow-up with your dentist or primary care provider if symptoms are not improving or worsen. Return to emergency department for fever greater than 101, increased pain or new problems. Take medication as ordered. All discharge instructions reviewed with patient and/or family. Voiced understanding. Scripts Tramadol HCl (Tramadol HCl) 50 Mg Tablet 50 MG PO Q8H, #12 TAB 0 Refills Prov: ERNESTO UMANA 01/31/19 Copy Copies To 1: CHRISTOPHER HERRING MD, AMY ARNP Jan 31, 2019 15:13
[2019-01-31 15:39] VITALS: BP 152/98
== END 2019-01-31 15:40 | disposition home or self-care (01) ==
LOC: ER 14:08 → EDUNIT# 14:08 → ER 15:40
DX: K08.89 Other specified disorders of teeth and supporting structures (principal); G43.909 Migraine, unspecified, not intractable, without status migrainosus; F41.9 Anxiety disorder, unspecified; F17.290 Nicotine dependence, other tobacco product, uncomplicated; Z88.1 Allergy status to other antibiotic agents; Z88.0 Allergy status to penicillin; Z88.2 Allergy status to sulfonamides; Z79.52 Long term (current) use of systemic steroids
CPT/HCPCS: 99283

== ENCOUNTER 2019-06-26 23:17 | Emergency (ER) | payer MEDICAID ==
[~2019-06-26] VITALS: Ht 185.5 cm; Wt 90.9 kg
[2019-06-26] MEDS ORDERED: diphenhydrAMINE 25 MG TAB (BENADRYL) PO ONE (23:45)
[2019-06-26] MEDS ORDERED: KETOROLAC 30 MG/ML VIAL IM ONE (23:45)
[2019-06-26] MEDS ORDERED: PROCHLORPERAZINE 10 MG/2ML INJ (COMPAZINE) IM ONE (23:45)
--- NOTE | 2019-06-26 23:46 | ED Headache ---
General Chief Complaint: Head/Cervical Problems Stated Complaint: MIGRAINE Source: patient, family Exam Limitations: no limitations History of Present Illness Date Seen by Provider: Jun 26, 2019 Time Seen by Provider: 23:31 Initial Comments Patient presents to ER by private conveyance with his significant other and chief complaint of a headache starting this evening around 1999. Patient expressed right occipital pain constant and also pain and pressure in both of his sinuses bilaterally. He says he has a history of migraines and typically uses grcl-ila-jecslyf migraine medicine with Tylenol, caffeine and ibuprofen although he took a dose 45 minutes prior to arrival and it has not helped. He has photophobia and phonophobia. No falls, weakness, numbness, visual changes. No fevers or chills. He took half a tablet of methocarbamol after dinner and went to lay down and then woke up about 1 hour later complaint of a migraine headache. Allergies and Home Medications Allergies Coded Allergies: Rofecoxib (Unverified Allergy, CHEST PAIN, 12/10/10) Uncoded Allergies: ERYTHROMYCIN (Allergy, Severe, ALSO MAKES HIM "DROP ", 12/10/10) PENICILLIN (Allergy, Severe, "DROP ", 12/10/10) SULFA DRUGS (Allergy, SHAKE AND BLEED PROFUSELY OUT BOTH NOSTRILS, 12/10/10) Home Medications Amoxicillin/Potassium Clav 1 Each Tablet, 1 EACH PO BID Prescribed by: ESPERANZA MCCARTY on 06/26/19 2350 Buspirone HCl 10 Mg Tablet, 1 TAB PC BID, (Reported) Cephalexin 500 Mg Capsule, 500 MG PO TID Prescribed by: ÓSCAR PATEL on 09/20/15 0129 Cyclobenzaprine HCl 10 Mg Tablet, 10 MG PO Q8H PRN for SPASMS Prescribed by: ÓSCAR PATEL on 10/04/16 1619 Hydrocodone Bit/Acetaminophen 1 Each Tablet, 1 EACH PO Q4H PRN for PAIN Prescribed by: ÓSCAR PATEL on 10/04/16 1619 Hydrocodone/Acetaminophen 1 Each Tablet, 1 EACH PO Q6H PRN for PAIN-MODERATE Prescribed by: OLGA RATLIFF on 11/07/18 1122 Hyoscyamine Sulfate 0.125 Mg Tab.subl, 1-2 TAB SL Q4H Prescribed by: CHRISTOPHER GONZALEZ on 12/20/18 0700 Methocarbamol 750 Mg Tablet, 750 MG PO Q4H PRN for PAIN-MODERATE TO SEVERE Prescribed by: OLGA RATLIFF on 11/07/18 1335 Methylprednisolone 4 Mg Tab.ds.pk, 4 MG PO UD Prescribed by: ÓSCAR PATEL on 10/04/16 1619 Ondansetron 4 Mg Tab.rapdis, 4 MG PO Q4H Prescribed by: CHRISTOPHER GONZALEZ on 12/20/18 0700 Quetiapine Fumarate 50 Mg Tablet, 1.5 TAB PO DAILY, (Reported) Sertraline HCl 50 Mg Tablet, 1 TAB PO DAILY, (Reported) Tramadol HCl 50 Mg Tablet, 50 MG PO Q4H PRN for PAIN Prescribed by: ÓSCAR PATEL on 09/20/15 0129 Tramadol HCl 50 Mg Tablet, 50 MG PO Q8H Prescribed by: ERNESTO UMANA on 01/31/19 1512 Patient Home Medication List Home Medication List Reviewed: Yes Review of Systems Review of Systems Constitutional: No chills, No diaphoresis Eyes: Denies Blindness, Denies Blurred Vision Ears, Nose, Mouth, Throat: denies ear pain, denies ear discharge; nose discharge (maxillary sinus pain) Respiratory: No cough, No short of breath Cardiovascular: No chest pain, No palpitations Gastrointestinal: No abdominal pain; nausea, vomiting Genitourinary: No discharge, No dysuria Past Xeljrnn-Mmcbtu-Fwhwmd Hx Patient Social History Alcohol Use: Denies Use Recreational Drug Use: No Smoking Status: Current Someday Smoker Type Used: Electronic/Vapor 2nd Hand Smoke Exposure: Yes Recent Foreign Travel: No Contact w/Someone Who Travel: No Recent Hopitalizations: No Immunizations Up To Date Tetanus Booster (TDap): Unknown PED Vaccines UTD: Yes Seasonal Allergies Seasonal Allergies: No Past Medical History Surgeries: Yes (LEFT KNEE SURGERY X 2, RIGHT SHOULDER) Orthopedic Respiratory: No Cardiac: No Neurological: No Headaches /Migraines Genitourinary: No Gastrointestinal: No Musculoskeletal: No Endocrine: No HEENT: No Cancer: No Psychosocial: No Anxiety Integumentary: No Blood Disorders: No Adverse Reaction/Blood Tranf: No Family Medical History No Pertinent Family Hx Physical Exam Vital Signs Vital Signs - First Documented 06/26/19 23:39 Temp 36.0 Pulse 61 Resp 17 B/P (MAP) 127/84 (98) Pulse Ox 98 O2 Delivery Room Air Capillary Refill : Height, Weight, BMI Height: 6'0" Weight: 193lbs. 5.0oz. 87.461313ab; 24.41 BMI Method:Actual General Appearance: WD/WN, mild distress HEENT: PERRL/EOMI, TMs normal, pharynx normal, other (and tenderness to palpation bilateral maxillary sinuses) Neck: non-tender, full range of motion, supple, normal inspection Cardiovascular: normal peripheral pulses, regular rate, rhythm Respiratory: no respiratory distress, no accessory muscle use Gastrointestinal: non tender, soft Psychiatric: alert, oriented x 3 Crainal Nerves: normal hearing, normal speech, PERRL Motor/Sensory: no motor deficit, no sensory deficit Skin: normal color, warm/dry Progress/Results/Core Measures Results/Orders My Orders Orders - ESPERANZA MCCARTY Ketorolac Injection (Toradol Injection) (06/26/19 23:45) Prochlorperazine Injection (Compazine In (06/26/19 23:45) Diphenhydramine Tablet (Benadryl Tablet) (06/26/19 23:45) Vital Signs/I&O 06/26/19 23:39 Temp 36.0 Pulse 61 Resp 17 B/P (MAP) 127/84 (98) Pulse Ox 98 O2 Delivery Room Air Progress Progress Note : Time: 23:47 Progress Note Sinus headache versus migraine headache versus both. Plan to give him 30 mg IM Toradol since he's already received 600 mg of ibuprofen an hour ago. 50 mg Benadryl and 10 mg IM Compazine. Putting out on Augmentin for his possible sinus infection. Departure Impression Primary Impression: Migraine Qualified Codes: G43.009 - Migraine without aura, not intractable, without status migrainosus Additional Impression: Maxillary sinusitis, acute Qualified Codes: J01.00 - Acute maxillary sinusitis, unspecified Disposition: 01 HOME, SELF-CARE Condition: Stable Departure-Patient Inst. Decision time for Depature: 23:48 Referrals: CHRISTOPHER HERRING MD (PCP/Family) Primary Care Physician Patient Instructions: Migraine Headache (DC), Sinusitis in Adults Add. Discharge Instructions: Consider using nasal saline or flush kits available [id number] at your pharmacy. 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 Drink plenty of fluids. Get some sleep tonight. Tylenol 1000 mg every 8 hours as needed for headache in addition to ibuprofen 800 mg every 8 hours as needed for headache. Follow-up with primary care as necessary. All discharge instructions reviewed with patient and/or family. Voiced understanding. Scripts Cefdinir (Cefdinir) 300 Mg Capsule 300 MG PO BID for 7 Days, #14 CAP 0 Refills Prov: ESPERANZA MCCARTY 06/26/19 ESPERANZA MCCARTY Jun 26, 2019 23:46
[2019-06-26] MEDS ORDERED: AMOX-358 PO (23:50)
[2019-06-26] MEDS ORDERED: CEFD300C3 PO (23:53)
[2019-06-27 00:10] VITALS: BP 127/84
== END 2019-06-27 00:09 | disposition home or self-care (01) ==
LOC: EDUNIT# 23:17 → ER 23:19
DX: G43.909 Migraine, unspecified, not intractable, without status migrainosus (principal); J01.00 Acute maxillary sinusitis, unspecified; F41.9 Anxiety disorder, unspecified; F17.290 Nicotine dependence, other tobacco product, uncomplicated; Z88.6 Allergy status to analgesic agent; Z88.1 Allergy status to other antibiotic agents; Z88.0 Allergy status to penicillin; Z88.2 Allergy status to sulfonamides
CPT/HCPCS: 96372; 99284

== ENCOUNTER 2019-08-30 07:21 | Emergency (ER) | payer MEDICAID ==
[~2019-08-30] VITALS: Ht 185 cm; Wt 90.9 kg
[~2019-08-30 07:21] MED LIST changes: +AMOX-358 PO; +CEFD300C3 PO
[2019-08-30] MEDS ORDERED: KETOROLAC 30 MG/ML VIAL IVP STA (07:44)
[2019-08-30] MEDS ORDERED: NS IV 1000 ML 1,000 ML IV ONE (07:44)
[2019-08-30 07:51] LABS: BASOPHILS % (AUTO) 0 % (0-10); BILIRUBIN,URINE NEGATIVE (NEGATIVE); CLARITY,URINE CLEAR; COLOR,URINE YELLOW; EOSINOPHILS # (AUTO) 0.2 10^3/uL (0.0-0.3); EOSINOPHILS % (AUTO) 2 % (0-10); GLUCOSE, URINE (UA) NEGATIVE (NEGATIVE); HEMATOCRIT 46 % (40-54); HEMOGLOBIN 15.8 G/DL (13.3-17.7); KETONES,URINE NEGATIVE (NEGATIVE); LEUKOCYTE ESTERASE ,URINE NEGATIVE (NEGATIVE); LYMPHOCYTES # (AUTO) 2.3 X 10^3 (1.0-4.0); LYMPHOCYTES % (AUTO) 28 % (12-44); MEAN CORPUSCULAR HEMOGLOBIN 29 PG (25-34); MEAN CORPUSCULAR HGB CONC 34 G/DL (32-36); MEAN CORPUSCULAR VOLUME 85 FL (80-99); MEAN PLATELET VOLUME 9.5 FL (7.4-10.4); MONOCYTES # (AUTO) 0.6 X 10^3 (0.0-1.0); MONOCYTES % (AUTO) 7 % (0-12); NEUTROPHILS # (AUTO) 5.1 X 10^3 (1.8-7.8); NEUTROPHILS % (AUTO) 62 % (42-75); NITRITE,URINE NEGATIVE (NEGATIVE); PH,URINE 5.5 (5-9); PLATELET COUNT 259 10^3/uL (130-400); PROTEIN,URINE NEGATIVE (NEGATIVE); RED CELL DISTRIBUTION WIDTH 12.9 % (10.0-14.5); WHITE BLOOD COUNT 8.1 10^3/uL (4.3-11.0)
[2019-08-30 08:05] LABS: BACTERIA,URINE TRACE /HPF
[2019-08-30 08:11] LABS: ALANINE AMINOTRANSFERASE 20 U/L (0-55); ALBUMIN 4.2 GM/DL (3.2-4.5); ALKALINE PHOSPHATASE 66 U/L (40-136); BILIRUBIN,TOTAL 0.4 MG/DL (0.1-1.0); BUN/CREATININE RATIO 10; CALCIUM 9.1 MG/DL (8.5-10.1); CARBON DIOXIDE 27 MMOL/L (21-32); CHLORIDE 104 MMOL/L (98-107); CREATININE SERUM 1.08 MG/DL (0.60-1.30); GFR ESTIMATED > 60; GLUCOSE 94 MG/DL (70-105); POTASSIUM 4.1 MMOL/L (3.6-5.0); SODIUM 139 MMOL/L (135-145); TOTAL PROTEIN 6.9 GM/DL (6.4-8.2)
[2019-08-30] MEDS ORDERED: fentaNYL INJECTION 100 MCG/2 ML AMP IVP STA (08:15)
--- NOTE | 2019-08-30 08:25 | ED Back Pain ---
General Chief Complaint: Back Problems Stated Complaint: BACK PAIN Nursing Triage Note: AMBULATED TO ROOM 05 WITHOUT DIFFICULTY. C/O LEFT LOWER BACK PAIN STARTING AT 1500 YESTERDAY. STATES HE THINKS HE HAS A KIDNEY STONE AGAIN. Nursing Sepsis Screen: No Definite Risk Source of Information: Patient Exam Limitations: No Limitations History of Present Illness Date Seen by Provider: Aug 30, 2019 Time Seen by Provider: 07:56 Initial Comments Here with report of acute onset of left low back pain starting yesterday while cutting wood. States it felt like his previous kidney stone. Denies other injury. Does have history of bulging disc and does get injections for that. Timing/Duration: 12-24 Hours Severity: Moderate Pain/Injury Location: Back Radiation: Other (none) Method of Injury: Unknown Modifying Factors: Worse With Movement; Improves With Rest Associated Symptoms: No muscle spasms, No fever, No weakness; lower back pain; No loss of bladder control Allergies and Home Medications Allergies Coded Allergies: Rofecoxib (Unverified Allergy, CHEST PAIN, 12/10/10) Uncoded Allergies: ERYTHROMYCIN (Allergy, Severe, ALSO MAKES HIM "DROP ", 12/10/10) PENICILLIN (Allergy, Severe, "DROP ", 12/10/10) SULFA DRUGS (Allergy, SHAKE AND BLEED PROFUSELY OUT BOTH NOSTRILS, 12/10/10) Home Medications Buspirone HCl 10 Mg Tablet, 1 TAB PC BID, (Reported) Quetiapine Fumarate 50 Mg Tablet, 1.5 TAB PO DAILY, (Reported) Sertraline HCl 50 Mg Tablet, 1 TAB PO DAILY, (Reported) Tramadol HCl 50 Mg Tablet, 50 MG PO Q8H Prescribed by: ERNESTO UMANA on 01/31/19 1512 Patient Home Medication List Home Medication List Reviewed: Yes Review of Systems Constitutional: see HPI; No chills, No fever EENTM: no symptoms reported Respiratory: no symptoms reported Cardiovascular: no symptoms reported Gastrointestinal: No abdominal pain, No nausea, No vomiting Genitourinary: No dysuria, No hematuria; pain (left flank) Musculoskeletal: back pain, muscle pain, muscle stiffness Skin: No change in color, No rash Psychiatric/Neurological: Denies Numbness, Denies Paresthesia, Denies Weakness All Other Systems Reviewed Negative Unless Noted: Yes Past Kxydpir-Nsqyvk-Okzriz Hx Past Med/Social Hx: Reviewed Nursing Past Med/Soc Hx Patient Social History Alcohol Use: Rarely Uses Recreational Drug Use: No Smoking Status: Current Everyday Smoker Type Used: Cigarettes, Electronic/Vapor 2nd Hand Smoke Exposure: Yes Recent Foreign Travel: No Contact w/Someone Who Travel: No Recent Infectious Disease Expo: No Recent Hopitalizations: No Immunizations Up To Date Tetanus Booster (TDap): Unknown PED Vaccines UTD: Yes Seasonal Allergies Seasonal Allergies: No Past Medical History Surgeries: Yes (LEFT KNEE SURGERY X 2, RIGHT SHOULDER) Orthopedic Respiratory: No Cardiac: No Neurological: No Headaches /Migraines Genitourinary: Yes Kidney Stones Gastrointestinal: No Musculoskeletal: No Endocrine: No HEENT: No Cancer: No Psychosocial: No Anxiety Integumentary: No Blood Disorders: No Adverse Reaction/Blood Tranf: No Family Medical History Reviewed Nursing Family Hx No Pertinent Family Hx Physical Exam Vital Signs Vital Signs - First Documented 08/30/19 07:25 Temp 37.1 Pulse 79 Resp 16 B/P (MAP) 134/87 (103) Pulse Ox 99 O2 Delivery Room Air Capillary Refill : Less Than 3 Seconds Height, Weight, BMI Height: 6'0" Weight: 193lbs. 5.0oz. 87.350667sm; 26.00 BMI Method:Actual General Appearance: No Apparent Distress, WD/WN HEENT: PERRL/EOMI, Pharynx Normal Neck: Non Tender, Supple Cardiovascular: Regular Rate, Rhythm, No Murmur Respiratory: Lungs Clear, Normal Breath Sounds Gastrointestinal: Non Tender, Soft Back: Muscle Spasm (left-sided low back); No Vertebral Tenderness; Other (tender along the left low back) Extremity: Normal Range of Motion, Non Tender Neurologic/Psychiatric: Alert, Oriented x3, No Motor/Sensory Deficits Skin: Normal Color, Warm/Dry Progress/Results/Core Measures Results/Orders Lab Results Laboratory Tests Test 08/30/19 07:43 Range/Units White Blood Count 8.1 4.3-11.0 10^3/uL Red Blood Count 5.46 4.35-5.85 10^6/uL Hemoglobin 15.8 13.3-17.7 G/DL Hematocrit 46 40-54 % Mean Corpuscular Volume 85 80-99 FL Mean Corpuscular Hemoglobin 29 25-34 PG Mean Corpuscular Hemoglobin Concent 34 32-36 G/DL Red Cell Distribution Width 12.9 10.0-14.5 % Platelet Count 259 130-400 10^3/uL Mean Platelet Volume 9.5 7.4-10.4 FL Neutrophils (%) (Auto) 62 42-75 % Lymphocytes (%) (Auto) 28 12-44 % Monocytes (%) (Auto) 7 0-12 % Eosinophils (%) (Auto) 2 0-10 % Basophils (%) (Auto) 0 0-10 % Neutrophils # (Auto) 5.1 1.8-7.8 X 10^3 Lymphocytes # (Auto) 2.3 1.0-4.0 X 10^3 Monocytes # (Auto) 0.6 0.0-1.0 X 10^3 Eosinophils # (Auto) 0.2 0.0-0.3 10^3/uL Basophils # (Auto) 0.0 0.0-0.1 10^3/uL Urine Color YELLOW Urine Clarity CLEAR Urine pH 5.5 5-9 Urine Specific [place] 1.020 1.016-1.022 Urine Protein NEGATIVE NEGATIVE Urine Glucose (UA) NEGATIVE NEGATIVE Urine Ketones NEGATIVE NEGATIVE Urine Nitrite NEGATIVE NEGATIVE Urine Bilirubin NEGATIVE NEGATIVE Urine Urobilinogen 0.2 < = 1.0 MG/DL Urine Leukocyte Esterase NEGATIVE NEGATIVE Urine RBC (Auto) NEGATIVE NEGATIVE Urine RBC NONE /HPF Urine WBC NONE /HPF Urine Crystals NONE /LPF Urine Bacteria TRACE /HPF Urine Casts NONE /LPF Urine Mucus SMALL H /LPF Urine Culture Indicated NO Sodium Level 139 135-145 MMOL/L Potassium Level 4.1 3.6-5.0 MMOL/L Chloride Level 104 98-107 MMOL/L Carbon Dioxide Level 27 21-32 MMOL/L Anion Gap 8 5-14 MMOL/L Blood Urea Nitrogen 11 7-18 MG/DL Creatinine 1.08 0.60-1.30 MG/DL Estimat Glomerular Filtration Rate > 60 BUN/Creatinine Ratio 10 Glucose Level 94 70-105 MG/DL Calcium Level 9.1 8.5-10.1 MG/DL Corrected Calcium 8.9 8.5-10.1 MG/DL Total Bilirubin 0.4 0.1-1.0 MG/DL Aspartate Amino Transf (AST/SGOT) 14 5-34 U/L Alanine Aminotransferase (ALT/SGPT) 20 0-55 U/L Alkaline Phosphatase 66 40-136 U/L Total Protein 6.9 6.4-8.2 GM/DL Albumin 4.2 3.2-4.5 GM/DL My Orders Orders - TAMRA ESCOBAR MD Cbc With Automated Diff (08/30/19 07:44) Comprehensive Metabolic Panel (08/30/19 07:44) Ua Culture If Indicated (08/30/19 07:44) Ed Iv/Invasive Line Start (08/30/19 07:44) Ns Iv 1000 Ml (Sodium Chloride 0.9%) (08/30/19 07:44) Ketorolac Injection (Toradol Injection) (08/30/19 07:44) Fentanyl Injection (Sublimaze Injection (08/30/19 08:15) Ct Abd/Pelvis Wo(Kidney Stone) (08/30/19 08:15) Medications Given in ED Current Medications Medications Dose Ordered Sig/Tabitha Route Start Time Stop Time Status Last Admin Dose Admin Sodium Chloride 1,000 ml @ 0 mls/hr Q0M ONCE IV 08/30/19 07:44 08/30/19 07:46 DC 08/30/19 07:51 1,000 MLS/HR Vital Signs/I&O 08/30/19 07:25 Temp 37.1 Pulse 79 Resp 16 B/P (MAP) 134/87 (103) Pulse Ox 99 O2 Delivery Room Air Blood Pressure Mean: 103 POS Progress Progress Note : Progress Note Seen and evaluated. IV, labs, UA, normal saline 1 L bolus, Toradol 30 mg IV ordered. Patient very concerned about kidney stone. UA is negative for blood patient has history and he has significant concerns so we will go ahead and get CT abdomen and pelvis kidney stone protocol. Fentanyl 75 g IV ordered for persistent continued pain. Monitor patient. 0911: Reviewed CT results and discussed all findings with the patient. No acute finding. This does appear to be musculoskeletal in origin. Patient has muscle relaxer at home. We did discuss outpatient therapy including ibuprofen and acetaminophen as well as topical agent such as icy hot with lidocaine. Discharged home with return precautions. Patient and family verbalize understanding instructions and agreement with plan. Diagnostic Imaging Diagonstic Imaging: CT Plain Films/CT/US/NM/MRI: abdomen, pelvis Comments [facility] POS [place], [place] POS NAME: IVÁN AGRAWAL [facility] REC#: [id number] PT STATUS: REG ER : 1980 PHYSICIAN: TAMRA ESCOBAR MD ADMIT DATE: 08/30/19/ER Signed POSDate of Exam:08/30/19 CT ABD/PELVIS WO(KIDNEY STONE) PROCEDURE: CT urinary tract, rule out kidney stone. TECHNIQUE: Multiple contiguous axial images were obtained through the abdomen and pelvis without the use of intravenous contrast. Auto Exposure Controls were utilized during the CT exam to meet ALARA standards for radiation dose reduction. INDICATION: Left flank pain Lung bases are clear. Liver appears normal. Gallbladder is present. Pancreas is normal. Spleen is not enlarged. Adrenals are normal. Kidneys appear normal. There is no hydronephrosis. There are no ureteral calculi. The appendix is normal. Small bowel is normal. Colon is unremarkable. Urinary bladder is normal. There are no hernias. IMPRESSION: No acute abnormality seen in the abdomen or pelvis Dictated by: Dictated on workstation # [id number] Dict: [birth year]/30/1943 Trans: 08/30/1944 [id number] Interpreted by: TAMRA WARNER MD Electronically signed by: TAMRA WARNER MD 08/30/1944 Departure Impression Primary Impression: Low back strain Qualified Codes: S39.012A - Strain of muscle, fascia and tendon of lower back, initial encounter Disposition: 01 HOME, SELF-CARE Condition: Stable Departure-Patient Inst. Decision time for Depature: 09:13 Referrals: CHRISTOPHER HERRING MD (PCP/Family) Primary Care Physician Patient Instructions: Low Back Pain (DC), Muscle Strain (DC) Add. Discharge Instructions: All discharge instructions reviewed with patient and/or family. Voiced understanding. You may take ibuprofen 600 mg every 8 hours as needed for pain. You may also take Tylenol/acetaminophen 1000 mg every 8 hours as needed for pain. You may use kyyc-kpz-ogwjmcx Icy Hot with lidocaine patches, Aspercreme with lidocaine patches, Salonpas with lidocaine patches or similar items to area of concern per package directions. Follow-up with your doctor on Sunday as scheduled for your procedure. Follow the instructions given to by your doctor regarding the procedure and instructions for the day of procedure. Return for worse pain, fever, vomiting, weakness, breathing problems or other concerns as needed. ATMRA ESCOBAR MD Aug 30, 2019 08:25 POS
--- NOTE | 2019-08-30 08:45 | Diagnostic Imaging Report ---
PROCEDURE: CT urinary tract, rule out kidney stone. TECHNIQUE: Multiple contiguous axial images were obtained through the abdomen and pelvis without the use of intravenous contrast. Auto Exposure Controls were utilized during the CT exam to meet ALARA standards for radiation dose reduction. INDICATION: Left flank pain Lung bases are clear. Liver appears normal. Gallbladder is present. Pancreas is normal. Spleen is not enlarged. Adrenals are normal. Kidneys appear normal. There is no hydronephrosis. There are no ureteral calculi. The appendix is normal. Small bowel is normal. Colon is unremarkable. Urinary bladder is normal. There are no hernias. IMPRESSION: No acute abnormality seen in the abdomen or pelvis Dictated by: Dictated on workstation # [id number]
[2019-08-30 09:25] VITALS: BP 131/76
== END 2019-08-30 09:25 | disposition home or self-care (01) ==
LOC: EDUNIT# 07:21 → ER 07:22
DX: S39.012A Strain of muscle, fascia and tendon of lower back, initial encounter (principal); G43.909 Migraine, unspecified, not intractable, without status migrainosus; F41.9 Anxiety disorder, unspecified; F17.210 Nicotine dependence, cigarettes, uncomplicated; F17.290 Nicotine dependence, other tobacco product, uncomplicated; Z87.442 Personal history of urinary calculi; Z88.1 Allergy status to other antibiotic agents; Z88.0 Allergy status to penicillin; Z88.2 Allergy status to sulfonamides; Z88.6 Allergy status to analgesic agent; X50.1XXA Overexertion from prolonged static or awkward postures, initial encounter
CPT/HCPCS: 36415; 74176; 80053; 81000; 85025

== ENCOUNTER 2019-11-03 12:30 | Emergency (ER) | payer MEDICAID ==
[~2019-11-03] VITALS: Ht 185.4 cm; Wt 90.9 kg
[~2019-11-03 12:30] MED LIST changes: -TRAM50TA2 PO; +TRM50T PO
[2019-11-03] MEDS ORDERED: KETOROLAC 60 MG/2 ML VIAL IM ONE (13:30)
[2019-11-03] MEDS ORDERED: ORPHENADRINE 60 MG/2 ML (NORFLEX) AMP IM ONE (13:30)
[2019-11-03] MEDS ORDERED: HYDROcodone/APAP 5 MG/325 MG (LORTAB) TAB PO ONE (14:30)
[2019-11-03] MEDS ORDERED: ACHD5005 PO (14:43)
--- NOTE | 2019-11-03 14:44 | ED Back Pain ---
General Chief Complaint: Back Problems Stated Complaint: BACK PAIN Nursing Triage Note: PT TO TRIAGE BY WHEELCHAIR WITH COMPLAINT OF LOW BACK PAIN THAT STARTED AFTER TURNING. Nursing Sepsis Screen: No Definite Risk Source of Information: Patient Exam Limitations: No Limitations History of Present Illness Date Seen by Provider: Nov 03, 2019 Time Seen by Provider: 13:29 Allergies and Home Medications Allergies Coded Allergies: Rofecoxib (Unverified Allergy, CHEST PAIN, 12/10/10) Uncoded Allergies: ERYTHROMYCIN (Allergy, Severe, ALSO MAKES HIM "DROP ", 12/10/10) PENICILLIN (Allergy, Severe, "DROP ", 12/10/10) SULFA DRUGS (Allergy, SHAKE AND BLEED PROFUSELY OUT BOTH NOSTRILS, 12/10/10) Home Medications Buspirone HCl 10 Mg Tablet, 1 TAB PC BID, (Reported) Quetiapine Fumarate 50 Mg Tablet, 1.5 TAB PO DAILY, (Reported) Sertraline HCl 50 Mg Tablet, 1 TAB PO DAILY, (Reported) Tramadol HCl 50 Mg Tablet, 50 MG PO Q8H Prescribed by: ERNESTO UMANA on 01/31/19 1512 Past Wttesjj-Uqlauc-Sxicjo Hx Patient Social History Alcohol Use: Denies Use Recreational Drug Use: No Smoking Status: Current Everyday Smoker Type Used: Cigarettes, Electronic/Vapor 2nd Hand Smoke Exposure: Yes Recent Foreign Travel: No Contact w/Someone Who Travel: No Recent Infectious Disease Expo: No Recent Hopitalizations: No Immunizations Up To Date Tetanus Booster (TDap): Unknown PED Vaccines UTD: Yes Seasonal Allergies Seasonal Allergies: No Past Medical History Surgeries: Yes (LEFT KNEE SURGERY X 2, RIGHT SHOULDER) Orthopedic Respiratory: No Cardiac: No Neurological: No Headaches /Migraines Genitourinary: Yes Kidney Stones Gastrointestinal: No Musculoskeletal: No Endocrine: No HEENT: No Cancer: No Psychosocial: No Anxiety Integumentary: No Blood Disorders: No Adverse Reaction/Blood Tranf: No Family Medical History No Pertinent Family Hx Physical Exam Vital Signs Vital Signs - First Documented 11/03/19 12:45 Pulse 82 Resp 17 B/P (MAP) 113/75 (88) Pulse Ox 97 O2 Delivery Room Air Capillary Refill : Less Than 3 Seconds Height, Weight, BMI Height: 6'0" Weight: 193lbs. 5.0oz. 87.616146ey; 26.00 BMI Method:Actual Progress/Results/Core Measures Results/Orders My Orders Orders - AYLA RESENDIZ Ketorolac Injection (Toradol Injection) (11/03/19 13:30) Orphenadrine Injection (Norflex Injectio (11/03/19 13:30) Hydrocodone/Apap 5/325 Tablet (Lortab 5 (11/03/19 14:30) Medications Given in ED Current Medications Medications Dose Ordered Sig/Tabitha Route Start Time Stop Time Status Last Admin Dose Admin Ketorolac Tromethamine 60 mg ONCE ONCE IM 11/03/19 13:30 11/03/19 13:31 DC 11/03/19 13:44 60 MG Orphenadrine Citrate 60 mg ONCE ONCE IM 11/03/19 13:30 11/03/19 13:31 DC 11/03/19 13:44 60 MG Vital Signs/I&O 11/03/19 12:45 Pulse 82 Resp 17 B/P (MAP) 113/75 (88) Pulse Ox 97 O2 Delivery Room Air Blood Pressure Mean: 88 Departure Impression Primary Impression: Back strain Disposition: 01 HOME, SELF-CARE Condition: Stable/Unchanged Departure-Patient Inst. Decision time for Depature: 14:42 Referrals: CHRISTOPHER HERRING MD (PCP/Family) Primary Care Physician Patient Instructions: Lumbar Muscle Strain (DC) Add. Discharge Instructions: You may use ibuprofen and Tylenol as directed by the bottle for pain relief. For pain unrelieved by ibuprofen and Tylenol you may use the hydrocodone. Ice to the sore areas as needed. Do not exceed your daily limit of Tylenol 4000 mg. Follow- up with primary care provider within 1 week for recheck. Return back to the emergency room for worsening symptoms or concerns as needed. All discharge instructions reviewed with patient and/or family. Voiced understanding. Scripts Hydrocodone Bit/Acetaminophen (Hydrocodone/Acetaminophen 5/325mg Tablet) 1 Tab Tab 1 EACH PO Q4-6HR PRN for PAIN-MODERATE MDD 10 for 3 Days, #14 TAB Prov: AYLA RESENDIZ 11/03/19 AYLA RESENDIZ Nov 03, 2019 14:43
[2019-11-03 14:59] VITALS: BP 113/75
== END 2019-11-03 14:59 | disposition home or self-care (01) ==
LOC: EDUNIT# 12:30 → ER 12:31
DX: S39.012A Strain of muscle, fascia and tendon of lower back, initial encounter (principal); G43.909 Migraine, unspecified, not intractable, without status migrainosus; F41.9 Anxiety disorder, unspecified; F17.210 Nicotine dependence, cigarettes, uncomplicated; F17.290 Nicotine dependence, other tobacco product, uncomplicated; Z87.442 Personal history of urinary calculi; Z88.1 Allergy status to other antibiotic agents; Z88.0 Allergy status to penicillin; Z88.2 Allergy status to sulfonamides; X50.1XXA Overexertion from prolonged static or awkward postures, initial encounter
CPT/HCPCS: 96372; 99284

== ENCOUNTER 2019-11-16 11:52 | Emergency (ER) | payer MEDICAID ==
--- NOTE | 2019-11-16 13:58 | ED Cough/URI ---
General Chief Complaint: Cough/Cold/Flu Symptoms Stated Complaint: FEVER/BODY ACHES Nursing Triage Note: 38-year-old male patient presents with complaints of fever, chills, generalized body aches, cough, congestion, and rhinorrhea beginning this a.m. Source: patient Exam Limitations: no limitations History of Present Illness Date Seen by Provider: Nov 16, 2019 Time Seen by Provider: 13:58 Initial Comments 38-year-old male patient presents with complaints of fever, chills, generalized body aches, cough, congestion, and rhinorrhea beginning this a.m. Patient has had known exposure to influenza including his son and close friends. Son finished his Tamiflu today. Fever improved with Tylenol. Last dose at 1000 this a.m. Timing/Duration: this morning, constant Severity/Quality: productive cough (clear) Prior Episodes/Possible Cause: no prior episodes Modifying Factors: Worse With Coughing Allergies and Home Medications Allergies Coded Allergies: Rofecoxib (Unverified Allergy, CHEST PAIN, 12/10/10) Uncoded Allergies: ERYTHROMYCIN (Allergy, Severe, ALSO MAKES HIM "DROP ", 12/10/10) PENICILLIN (Allergy, Severe, "DROP ", 12/10/10) SULFA DRUGS (Allergy, SHAKE AND BLEED PROFUSELY OUT BOTH NOSTRILS, 12/10/10) Home Medications Buspirone HCl 10 Mg Tablet, 1 TAB PC BID, (Reported) Hydrocodone Bit/Acetaminophen 1 Tab Tab, 1 EACH PO Q4-6HR PRN for PAIN-MODERATE Prescribed by: AYLA RESENDIZ on 11/03/19 1443 Oseltamivir Phosphate 75 Mg Cap, 75 MG PO BID Prescribed by: ÓSCAR PATEL on 11/16/19 1408 Quetiapine Fumarate 50 Mg Tablet, 1.5 TAB PO DAILY, (Reported) Sertraline HCl 50 Mg Tablet, 1 TAB PO DAILY, (Reported) Tramadol HCl 50 Mg Tablet, 50 MG PO Q8H Prescribed by: ERNESTO UMANA on 01/31/19 1512 Patient Home Medication List Home Medication List Reviewed: Yes Review of Systems Review of Systems Constitutional: chills; No dizziness; fever, malaise EENTM: see HPI, ear pain, nose congestion, throat pain, other (rhinorrhea); No ear discharge, No hoarseness, No throat swelling Respiratory: see HPI, cough; No dyspnea on exertion; phlegm; No short of breath, No stridor, No wheezing Cardiovascular: no symptoms reported Gastrointestinal: No abdominal pain, No constipation, No diarrhea, No nausea, No vomiting Genitourinary: no symptoms reported Musculoskeletal: see HPI, other (generalized body aches) Skin: no symptoms reported Psychiatric/Neurological: No Symptoms Reported All Other Systems Reviewed Negative Unless Noted: Yes (Negative excepted noted.) Past Vrlxbwg-Kromhx-Hqbjln Hx Past Med/Social Hx: Reviewed Nursing Past Med/Soc Hx Patient Social History Type Used: Cigarettes, Electronic/Vapor 2nd Hand Smoke Exposure: Yes Recent Foreign Travel: No Contact w/Someone Who Travel: No Recent Hopitalizations: No Immunizations Up To Date Tetanus Booster (TDap): Unknown PED Vaccines UTD: Yes Seasonal Allergies Seasonal Allergies: No Past Medical History Surgeries: Yes (LEFT KNEE SURGERY X 2, RIGHT SHOULDER) Orthopedic Respiratory: No Cardiac: No Neurological: No Headaches /Migraines Genitourinary: Yes Kidney Stones Gastrointestinal: No Musculoskeletal: No Endocrine: No HEENT: No Cancer: No Psychosocial: No Anxiety Integumentary: No Blood Disorders: No Adverse Reaction/Blood Tranf: No Family Medical History Reviewed Nursing Family Hx No Pertinent Family Hx Physical Exam Capillary Refill : Height: 6'0" Weight: 193lbs. 5.0oz. 87.814823tu; 26.00 BMI Method:Actual General Appearance: WD/WN, no apparent distress ( lying in the recliner with the patient.) Eyes: Bilateral Eye Normal Inspection, Bilateral Eye PERRL, Bilateral Eye EOMI HEENT: PERRL/EOMI, pharyngeal erythema, other (pharyngeal erythema without exudates, ulcerations, or swelling. Air-fluid levels to bilateral tympanic membranes without erythema, retraction, bulging, or perforation. External ear canals negative. Positive nasal congestion and rhinorrhea noted.) Neck: non-tender, full range of motion, supple, lymphadenopathy (R), lymphadenopathy (L) Respiratory: lungs clear, normal breath sounds, no respiratory distress, no accessory muscle use Cardiovascular: regular rate, rhythm, no edema, no gallop, no murmur Gastrointestinal: normal bowel sounds, non tender, soft, no organomegaly Extremities: no pedal edema, normal capillary refill Neurologic/Psychiatric: alert, normal mood/affect, oriented x 3 Skin: normal color, warm/dry Progress/Results/Core Measures Suspected Sepsis SIRS Temperature: Pulse: Respiratory Rate: Blood Pressure / Mean: Results/Orders Micro Results Microbiology 11/16/19 Influenza Types A,B Antigen (DEREK) - Final, Complete My Orders Orders - ÓSCAR PATEL Influenza A And B Antigens (11/16/19 12:42) Vital Signs/I&O Capillary Refill : Departure Communication (Admissions) Patient seen and evaluated. Lab findings discussed with the patient. Plan for discharge to home. Impression Primary Impression: Influenza-like symptoms Disposition: HOME, SELF-CARE Condition: Improved Departure-Patient Inst. Decision time for Depature: 14:07 Referrals: CHRISTOPHER HERRING MD (PCP/Family) Primary Care Physician Patient Instructions: Flu, Adult (DC) Add. Discharge Instructions: All discharge instructions reviewed with patient and/or family. Voiced understanding. Medications as instructed. Tylenol and/or ibuprofen [id number] as directed for pain or fever. Push fluids. Yiyg-cuv-ascvdlj cough suppressants, decongestants, and antihistamines as needed for symptomatically. Rest. Follow-up with your family practitioner for recheck as an outpatient if no improvement in symptoms. Return to the emergency department for worsened symptoms or any other concerns. Scripts Oseltamivir Phosphate (Tamiflu) 75 Mg Cap 75 MG PO BID, #10 CAP 0 Refills Prov: ÓSCAR PATEL 11/16/19 Work/School Note: Work Release Form Date Seen in the Emergency Department: Nov 16, 2019 Return to Work: Nov 17, 2019 Restrictions: Return-No Fever (24hrs) ÓSCAR PATEL Nov 16, 2019 13:58
[2019-11-16] MEDS ORDERED: OSLT75C PO (14:08)
[2019-11-16 14:17] VITALS: BP 132/72
== END 2019-11-16 14:18 | disposition home or self-care (01) ==
LOC: EDUNIT# 11:52 → ER 11:53
DX: R09.89 Other specified symptoms and signs involving the circulatory and respiratory systems (principal); F41.9 Anxiety disorder, unspecified; Z88.1 Allergy status to other antibiotic agents; Z88.0 Allergy status to penicillin; Z88.2 Allergy status to sulfonamides; Z88.6 Allergy status to analgesic agent; Z77.22 Contact with and (suspected) exposure to environmental tobacco smoke (acute) (chronic)
CPT/HCPCS: 87804; 99281

== ENCOUNTER 2020-01-19 14:13 | Emergency (ER) | payer MEDICAID ==
[~2020-01-19] VITALS: Ht 185 cm; Wt 86.2 kg
[2020-01-19] MEDS ORDERED: NF-OLOP5ML OU (15:45)
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
[2020-01-19 15:47] VITALS: BP 113/75
== END 2020-01-19 15:47 | disposition home or self-care (01) ==
LOC: EDUNIT# 14:13 → ER 14:15
DX: H10.13 Acute atopic conjunctivitis, bilateral (principal); F17.210 Nicotine dependence, cigarettes, uncomplicated; F41.9 Anxiety disorder, unspecified
CPT/HCPCS: 99282

== ENCOUNTER 2020-02-25 19:49 | Emergency (ER) | payer MEDICAID ==
[~2020-02-25] VITALS: Ht 185 cm; Wt 85.0 kg
[~2020-02-25 19:49] MED LIST changes: +NF-OLOP5ML OU
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
--- OUTSIDE RECORDS SUMMARY | 2020-02-25 20:05 | XMS REPORT ---
Author Author Jamir ORTIZ Organization [facility] Address [address] [place] [address] Care Team Providers Care Pre Sales Architect Name Role Phone AUGUSTIN ORTIZ Unavailable PROBLEMS Type Condition ICD9-CM Code [id number] Code Onset Dates Condition S tatus SNOMED Code Problem Bipolar I disorder, most recent episode (or current) mixed, moderate 296.62 Active 230542810 Problem Major depressive disorder, s thompson episode, severe, without mention of psychotic behavior 296.23 Active 34304580 Problem Depressive disorder, not elsewhere classified 311 Active 03365190 Problem Unspecified episodic mood disorder 296.90 Active [id number] ALLERGIES No Information ENCOUNTERS Encounter Location Date Diagnosis [facility] [address] [id number] [place] [address] [id number] Jan, [facility] [address] [id number] [place] [address] [id number] Jan, Dental examination Z01.20 [facility] [address] [id number] [place] [address] [id number] Jan, Caries K02.9 [facility] [address] [id number] [place] [address] [id number] Dec, Dental examination Z01.20 ; Caries K02.9 and Periodontitis K05.30 [facility] [address] [id number] [address] [place] [address] [id number] Sep, Dental examination Z01.20 an d Caries K02.9 [facility] [address] [id number] [address] [place] [address] [id number] Jul, Dental caries K02.9 [facility] [address] [id number] [address] [place] [address] [id number] Jul, Dental examination Z01.20 [facility] [address] [id number] [address] [place] [address] [id number] Jul, Dental caries K02.9 [facility] [address] [id number] [address] [place] [address] [id number] 06 Jul, 2016 Dental examination Z01.20 [facility] [address] [id number] [address] [place] [phone] 14 Jan, 2015 [facility] [address] [id number] [address] [place] [phone] Jan, [facility] [address] [id number] [address] [place] [phone] May, [facility] [address] [id number] [address] [place] [phone] Apr, [facility] [address] [id number] [address] [place] [phone] Apr, [facility] [address] [id number] [address] [place] [phone] Apr, [facility] [address] [id number] [address] [place] [phone] Mar, [facility] [address] [id number] [address] [place] [phone] Mar, [facility] [address] [id number] [address] [place] [phone] Mar, [facility] [address] [id number] [address] [place] [phone] Mar, [facility] [address] [id number] [address] [place] [phone] February, [facility] [address] [id number] [address] [place] [phone] February, IMMUNIZATIONS No Known Immunizations SOCIAL HISTORY Never Assessed REASON FOR VISIT PLAN OF CARE VITAL SIGNS MEDICATIONS Unknown Medications RESULTS No Results PROCEDURES No Known procedures INSTRUCTIONS MEDICATIONS ADMINISTERED No Known Medications MEDICAL (GENERAL) HISTORY Type Description Date Surgical History right shoulder bone spur removal/repair Surgical History two knee left Surgical History tendon reattachment right pinkie Surgical History wisdom teeth Surgical History kidney stones
--- OUTSIDE RECORDS SUMMARY | 2020-02-25 20:05 | XMS REPORT ---
Author Author Jamir ORTIZ Organization [facility] Address [address] [place] [address] Care Team Providers Care Underwear Hemmer Name Role Phone AUGUSTIN ORTIZ Unavailable PROBLEMS Type Condition ICD9-CM Code CAU79-NP Code Onset Dates Condition S tatus SNOMED Code Problem Bipolar I disorder, most recent episode (or current) mixed, moderate 296.62 Active 102647212 Problem Major depressive disorder, s thompson episode, severe, without mention of psychotic behavior 296.23 Active 39291581 Problem Depressive disorder, not elsewhere classified 311 Active 06062943 Problem Unspecified episodic mood disorder 296.90 Active [id number] ALLERGIES No Information ENCOUNTERS Encounter Location Date Diagnosis [facility] [id number] [place] [address] [id number] Jan, [facility] [address] [id number] [place] [address] [id number] Jan, Dental examination Z01.20 [facility] [address] [id number] [place] [address] [id number] Jan, Caries K02.9 [facility] [address] [id number] [place] [address] [id number] Dec, Dental examination Z01.20 ; Caries K02.9 and Periodontitis K05.30 [facility] [address] [id number] [address] [place] [address] [id number] Sep, Dental examination Z01.20 an d Caries K02.9 [facility] [address] [id number] [address] [place] [address] [id number] Jul, Dental caries K02.9 [facility] [address] [id number] [address] [place] [address] [id number] Jul, Dental examination Z01.20 [facility] [address] [id number] [address] [place] [address] [id number] Jul, Dental caries K02.9 [facility] [address] [id number] [address] [place] [address] [id number] 06 Jul, 2016 Dental examination Z01.20 [facility] [address] [id number] [address] [place] [phone] 14 Jan, 2015 [facility] [address] [id number] [address] [place] [phone] Jan, [facility] [address] [id number] [address] [place] [phone] May, [facility] [address] [id number] [address] [place] [phone] Apr, [facility] [address] [id number] [address] [place] [phone] Apr, [facility] [address] [id number] [address] [place] [phone] Apr, [facility] [address] [id number] [address] [place] [phone] Mar, [facility] [address] [id number] [address] [place] [phone] Mar, [facility] [address] [id number] [address] [place] [phone] Mar, [facility] [address] [id number] [address] [place] [phone] Mar, [facility] [address] [id number] [address] [place] [phone] February, [facility] [address] [id number] [address] [place] [phone] February, IMMUNIZATIONS No Known Immunizations SOCIAL HISTORY [...]
--- OUTSIDE RECORDS SUMMARY | 2020-02-25 20:05 | XMS REPORT ---
Author Author Jamir Melendrez Doctor Organization [facility] Address Unknown Phone Unavailable Care Team Providers Care Chalk Machine Operator Name Role Phone Migration, Doctor Unavailable Unavailable PROBLEMS Type Condition ICD9-CM Code GLF51-BY Code Onset Dates Condition S tatus SNOMED Code Problem Bipolar I disorder, most recent episode (or current) mixed, moderate 296.62 Active 338294666 Problem Major depressive disorder, s thompson episode, severe, without mention of psychotic behavior 296.23 Active 30240855 Problem Depressive disorder, not elsewhere classified 311 Active 32657524 Problem Unspecified episodic mood disorder 296.90 Active [id number] ALLERGIES No Information ENCOUNTERS Encounter Location Date Diagnosis [facility] [address] [place] [address] [id number] Jan, [facility] [address] [place] [address] [id number] Jan, Dental examination Z01.20 [facility] [address] [place] [address] [id number] Jan, Caries K02.9 [facility] [address] [place] [address] [id number] Dec, Dental examination Z01.20 ; Caries K02.9 and Periodontitis K05.30 [facility] [address] [place] [address] [id number] Sep, Dental examination Z01.20 an d Caries K02.9 [facility] [address] [place] [address] [id number] Jul, Dental caries K02.9 [facility] [address] [id number] [place] [address] [phone] Jul, Dental examination Z01.20 [facility] [id number] [id number] Jul, Dental caries K02.9 [facility] [address] [id number] [address] [place] [address] [phone] Jul, Dental examination Z01.20 [facility] [address] [id number] [address] [place] [phone] 14 Jan, 2015 [facility] [address] [id number] [address] [place] [phone] Jan, [facility] [address] [id number] [address] [place] [phone] May, [facility] [address] [id number] [address] [place] [phone] Apr, [facility] [address] [id number] [address] [place] [phone] Apr, [facility] [address] [id number] [address] [place] [phone] Apr, [facility] [address] [id number] [address] [place] [phone] Mar, [facility] [address] [id number] [address] [place] [phone] Mar, [facility] [address] [id number] [address] [place] [phone] Mar, [facility] [address] [id number] [address] [place] [phone] Mar, [facility] [address] [id number] [address] [place] [phone] February, [facility] [address] [id number] [address] [place] [phone] February, IMMUNIZATIONS No Known Immunizations SOCIAL HISTORY Never Assessed REASON FOR VISIT PLAN OF CARE VITAL SIGNS Height 72 in 2012-04-11 Weight 162 lbs 2012-04-11 Heart Rate 76 bpm 2012-04-11 Respiratory Rate 18 2012-04-11 Blood pressure systolic 100 mmHg 2012-04-11 Blood pressure diastolic 80 mmHg 2012-04-11 MEDICATIONS Unknown Medications RESULTS No Results PROCEDURES No Known procedures INSTRUCTIONS MEDICATIONS ADMINISTERED No Known Medications MEDICAL (GENERAL) HISTORY Type Description Date Surgical History right shoulder bone spur removal/repair Surgical History two knee left Surgical History tendon reattachment right pinkie Surgical History wisdom teeth Surgical History kidney stones
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
--- OUTSIDE RECORDS SUMMARY | 2020-02-25 20:05 | XMS REPORT ---
Author Author Jamir ORTIZ Organization [facility] Address [address] [place] [address] Care Team Providers Care Transportation Lead Name Role Phone AUGUSTIN ORTIZ Unavailable PROBLEMS Type Condition ICD9-CM Code LMH25-TE Code Onset Dates Condition S tatus SNOMED Code Problem Bipolar I disorder, most recent episode (or current) mixed, moderate 296.62 Active 078557142 Problem Major depressive disorder, s thompson episode, severe, without mention of psychotic behavior 296.23 Active 49576671 Problem Depressive disorder, not elsewhere classified 311 Active 51343440 Problem Unspecified episodic mood disorder 296.90 Active [id number] ALLERGIES No Information ENCOUNTERS Encounter Location Date Diagnosis [facility] [id number] [place] [address] [id number] Jan, [facility] [id number] [place] [address] [id number] Jan, Dental examination Z01.20 [facility] [address] [id number] [place] [address] [id number] Jan, Caries K02.9 [facility] [id number] [place] [address] [id number] Dec, Dental examination Z01.20 ; Caries K02.9 and Periodontitis K05.30 [facility] [address] [id number] [address] [place] [address] [id number] Sep, Dental examination Z01.20 an d Caries K02.9 [facility] [address] [id number] [address] [place] [address] [id number] Jul, Dental caries K02.9 [facility] [address] [id number] [address] [place] [address] [id number] Jul, Dental examination Z01.20 [facility] [address] [id number] [address] [place] [address] [id number] Jul, Dental caries K02.9 [facility] [address] [id number] [address] [place] [address] [id number] Jul, 2016 Dental examination Z01.20 [facility] [address] [id number] [address] [place] [phone] 14 Jan, 2015 [facility] [address] [id number] [address] [place] [phone] Jan, [facility] [address] [id number] [address] [place] [phone] May, [facility] [address] [id number] [address] [place] [phone] Apr, [facility] [address] [id number] [address] [place] [phone] Apr, [facility] [address] [id number] [address] [place] [phone] Apr, [facility] [address] [id number] [address] [place] [phone] Mar, [facility] [address] [id number] [address] [place] [phone] Mar, [facility] [address] [id number] [address] [place] [phone] Mar, [facility] [address] [id number] [address] [place] [phone] Mar, [facility] [address] [id number] [address] [place] [phone] February, [facility] [address] [id number] [address] [place] [phone] February, IMMUNIZATIONS No Known Immunizations SOCIAL HISTORY [...]
[2020-02-25] MEDS ORDERED: ORPHENADRINE 60 MG/2 ML (NORFLEX) AMP IM ONE (20:15)
[2020-02-25] MEDS ORDERED: KETOROLAC 60 MG/2 ML VIAL IM ONE (20:15)
[2020-02-25] MEDS ORDERED: diphenhydrAMINE 50 MG/ML INJ (BENADRYL) IM ONE (20:15)
[2020-02-25 20:45] VITALS: BP 123/92
== END 2020-02-25 20:45 | disposition home or self-care (01) ==
LOC: EDUNIT# 19:49 → ER 19:50
DX: R51 Headache (principal); F41.9 Anxiety disorder, unspecified; F17.210 Nicotine dependence, cigarettes, uncomplicated; F17.290 Nicotine dependence, other tobacco product, uncomplicated; Z88.0 Allergy status to penicillin; Z88.2 Allergy status to sulfonamides; Z88.1 Allergy status to other antibiotic agents; Z88.6 Allergy status to analgesic agent; Z86.69 Personal history of other diseases of the nervous system and sense organs
CPT/HCPCS: 99284

== ENCOUNTER 2020-03-13 20:29 | Observation (INO) | payer MEDICAID ==
[~2020-03-13] VITALS: Ht 183 cm; Wt 88.2 kg
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
[2020-03-13] MEDS ORDERED: GLUCAGON EMERGENCY 1 MG/KIT IV ONE (21:15)
[2020-03-13] MEDS ORDERED: ONDANSETRON 4 MG/2 ML (SDV) Z0FRAN IVP ONE (21:15)
[2020-03-13] MEDS ORDERED: LACTATED RINGERS 1,000 ML IV SCH ×2 (21:15→22:30)
[2020-03-13] MEDS ORDERED: GLUCAGON EMERGENCY 1 MG/KIT IM ONE (21:15)
[2020-03-13 21:49] LABS: BASOPHILS % (AUTO) 0 % (0-10); EOSINOPHILS # (AUTO) 0.5 10^3/uL (0.0-0.3); EOSINOPHILS % (AUTO) 5 % (0-10); HEMATOCRIT 44 % (40-54); HEMOGLOBIN 15.4 G/DL (13.3-17.7); LYMPHOCYTES % (AUTO) 42 % (12-44); MEAN CORPUSCULAR HEMOGLOBIN 30 PG (25-34); MEAN CORPUSCULAR HGB CONC 35 G/DL (32-36); MEAN CORPUSCULAR VOLUME 86 FL (80-99); MEAN PLATELET VOLUME 10.5 FL (7.4-10.4); MONOCYTES # (AUTO) 0.7 X 10^3 (0.0-1.0); MONOCYTES % (AUTO) 8 % (0-12); NEUTROPHILS # (AUTO) 4.3 X 10^3 (1.8-7.8); NEUTROPHILS % (AUTO) 46 % (42-75); PLATELET COUNT 246 10^3/uL (130-400); RED CELL DISTRIBUTION WIDTH 13.4 % (10.0-14.5); WHITE BLOOD COUNT 9.5 10^3/uL (4.3-11.0)
[2020-03-13 22:01] LABS: CHLORIDE 106 MMOL/L (98-107); POTASSIUM 3.9 MMOL/L (3.6-5.0); SODIUM 139 MMOL/L (135-145)
[2020-03-13 22:02] LABS: CALCIUM 9.3 MG/DL (8.5-10.1); GLUCOSE 85 MG/DL (70-105)
[2020-03-13 22:04] LABS: CARBON DIOXIDE 24 MMOL/L (21-32)
[2020-03-13 22:06] LABS: CREATININE SERUM 1.17 MG/DL (0.60-1.30); GFR ESTIMATED > 60
[2020-03-13 22:07] LABS: BUN/CREATININE RATIO 11
[2020-03-13 22:08] VITALS: BP 136/84
[2020-03-13] MEDS ORDERED: PROMETHAZINE 25 MG (PHENERGAN) SUPP PR PRN (22:30)
[2020-03-13] MEDS ORDERED: LORazepam INJ 2 MG/ML (ATIVAN) VIAL IV PRN (22:30)
[2020-03-13] MEDS ORDERED: ONDANSETRON 4 MG/2 ML (SDV) Z0FRAN IV PRN (22:30)
[2020-03-14] VITALS: BP 123/79
[2020-03-14 04:00] VITALS: BP 105/62
[2020-03-14] MEDS ORDERED: METH500T7 PO (07:57)
[2020-03-14 08:02] VITALS: BP 113/64
[2020-03-14] MEDS ORDERED: NICOTINE 14 MG (NICODERM) PATCH TD SCH (09:00)
[2020-03-14 10:21] VITALS: BP 113/64
--- NOTE | 2020-03-14 11:14 | HISTORY AND PHYSICAL ---
DATE OF SERVICE: ATTENDING PRIMARY CARE PHYSICIAN: Dr. Amy Jay. HISTORY OF PRESENT ILLNESS: The patient is a 39-year-old male, who was seen in consultation with Dr. Lisa. The patient reports that he was eating some beef jerky yesterday evening and reports that he had got about half a steak eaten. He reports that he had the sensation that it was stuck in his throat and could not get it out. He reports that he was unable to swallow his secretions, but had not tried drinking any water. He reports that he was having discomfort in his chest and throat and reports that he did present to the Emergency Department. On further questioning, he does report in the past that he has had episodes of reflux; however, has controlled this with diet. He denies ever having any upper endoscopies before. He does have a history of low back pain and bulging disk. He is on muscle relaxants for this. He does report this morning that the sensation has gone away and only has mild discomfort in the back of his throat. He denies any other symptoms at this time. PAST MEDICAL HISTORY: Degenerative disk disease. PAST SURGICAL HISTORY: Left knee surgery x2, right shoulder surgery, wisdom teeth and righthand tendon repair. ALLERGIES: ERYTHROMYCIN, PENICILLIN, SULFA, . MEDICATIONS: Methocarbamol 500 mg every 6 to 8 hours, Patanol 5 mL two drops q.12 hours p.r.n. SOCIAL HISTORY: Positive for smoke. Negative for alcohol. FAMILY HISTORY: Noncontributory. REVIEW OF SYSTEMS: This is a well-nourished male in no acute distress. He is not experiencing any shortness of breath or difficulty breathing. He is currently not experiencing any chest pain, palpitations or any diaphoresis. No nausea, vomiting or abdominal pain. He does report some minor discomfort and irritation in the back of his throat. No heartburn or reflux. No hematemesis. No coffee ground emesis. No diarrhea or constipation. No red blood per rectum. No dark tarry stools. No fever or chills. No recent inadvertent weight loss. All other review of systems negative. PHYSICAL EXAMINATION: VITAL SIGNS: Temperature 36.6 degrees Celsius, pulse 62, respirations 20, blood pressure is 113/64 and pulse ox is 98% on room air. CHEST: Clear. Good breath sounds bilaterally. HEART: Regular, no murmurs. EXTREMITIES: No lower extremity edema. Negative Homans sign. HEENT: No scleral icterus. NECK: No cervical lymphadenopathy. ABDOMEN: Soft, nontender and nondistended. SKIN: Warm, dry and pink. NEUROLOGIC: Awake, alert and oriented x3. ASSESSMENT AND PLAN: A 39-year-old male with an esophageal food bolus. At this time, this has resolved with conservative management with fluids as well as glucagon. We will proceed with a trial of liquids as well as soft foods and if the patient tolerates this well, he is instructed that he may be discharged home. 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 The patient verbalized understanding of instructions. Job ID: [id number] DocumentID: [id number] Dictated Date: 03/14/2020 10:32:10 Well Service Floorperson Date: 03/14/2020 11:14:18 Dictated By: JOANNE ADAM APRN
== END 2020-03-14 10:24 | disposition home or self-care (01) ==
LOC: EDUNIT# 20:29 → ER 20:31 → 4TH 21:10
PROVIDERS: ADMIT Surgery; ATTEND Surgery
DX: T18.128A Food in esophagus causing other injury, initial encounter (principal); G43.909 Migraine, unspecified, not intractable, without status migrainosus; M54.9 Dorsalgia, unspecified; G89.29 Other chronic pain; F41.9 Anxiety disorder, unspecified; F17.210 Nicotine dependence, cigarettes, uncomplicated; Z88.8 Allergy status to other drugs, medicaments and biological substances; Z88.2 Allergy status to sulfonamides; Z88.1 Allergy status to other antibiotic agents; Z79.891 Long term (current) use of opiate analgesic; Z79.899 Other long term (current) drug therapy
CPT/HCPCS: 36415; 80048; 85025; 96361; 96374; 96375; 99284; G0378

== ENCOUNTER 2020-09-28 19:11 | Emergency (ER) | payer MEDICAID ==
[~2020-09-28] VITALS: Ht 185.5 cm; Wt 88.5 kg
[~2020-09-28 19:11] MED LIST changes: +METH500T7 PO
[2020-09-28] MEDS ORDERED: PROCHLORPERAZINE 10 MG/2ML INJ (COMPAZINE) IM ONE (19:30)
[2020-09-28] MEDS ORDERED: diphenhydrAMINE 50 MG/ML INJ (BENADRYL) IM ONE (19:30)
[2020-09-28] MEDS ORDERED: KETOROLAC 60 MG/2 ML VIAL IM ONE (19:30)
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
[2020-09-28 20:25] VITALS: BP 128/64
== END 2020-09-28 20:25 | disposition home or self-care (01) ==
LOC: EDUNIT# 19:11 → ER 19:14
DX: R51.9 Headache, unspecified (principal); R11.2 Nausea with vomiting, unspecified; F17.210 Nicotine dependence, cigarettes, uncomplicated; Z86.69 Personal history of other diseases of the nervous system and sense organs; Z88.0 Allergy status to penicillin; Z88.1 Allergy status to other antibiotic agents; Z88.2 Allergy status to sulfonamides; Z88.6 Allergy status to analgesic agent
CPT/HCPCS: 99284